=== PATIENT | male | born 1940 | race Caucasian/White ===

== ENCOUNTER 2016-07-11 17:43 | Emergency (ER) | payer MEDICARE ==
[~2016-07-11 17:43] MED LIST: ALDA25TA2 PO; ALPR0.25 PO; AMIO20TA PO; ASPI81TA60 PO; ASPI81TA85 PO; DOXY10CA PO; LASI20TA PO; LASI40TA PO; METO25TA74 PO; METO25TAB PO; MULT1TAB8 PO; PRED10TA FT; PRED20TAB PO; PROA1AER INH; SYMB16INH INH; SYMB80AE INH; TYLE500T78 PO; [UNRECOGNIZED DRUG - CODE] PO
[2016-07-11] MEDS ORDERED: IPRATROPIUM 0.5MG/ALBUTEROL 2.5MG INH SOL UD 3ML (DUONEB)(J7620) As Ordered ONE (18:58)
[2016-07-11 19:14] LABS: BASO % 0.5 % (0.0-1.0); EOS # 0.2 K/mm3 (0.0-0.50); EOS % 2.6 % (0.0-3.0); LARGE UNSTAINED CELL # 0.2 K/mm3 (0.0-0.4); LARGE UNSTAINED CELL % 3.6 % (0.0-4.0); LYMPH % 15.8 % (24.0-44.0); MEAN CORPUSCULAR HGB CONC 33.2 g/dl (32.0-36.5); MEAN CORPUSCULAR VOLUME 96.4 fl (80.0-96.0); MONO # 0.4 K/mm3 (0.0-0.8); MONO % 6.2 % (0.0-5.0); NEUTROPHILS # 4.3 K/mm3 (1.8-7.7); NEUTROPHILS % 71.3 % (36.0-66.0); PLATELET COUNT, AUTOMATED 277 k/mm3 (150-450); RED CELL DISTRIBUTION WIDTH 13.6 % (11.5-14.5)
--- NOTE | 2016-07-11 19:22 | REP ---
Clinical: Shortness of breath. Comparison: 06/12/2016. Findings: Stable cardiomegaly. Diffuse chronic interstitial changes are appreciated. Subtle superimposed interstitial edema cannot be excluded and requires correlation. No focal consolidation, obvious effusion, or pneumothorax. Skeletal structures stable. Impression: Chronic interstitial changes. Cannot exclude superimposed interstitial edema. Signed by Walter Landon MD 07/11/2016 07:13 P
[2016-07-11 19:38] LABS: ANION GAP 10 MEQ/L (8-16); BLOOD UREA NITROGEN 29 MG/DL (7-18); CALCIUM LEVEL 8.9 MG/DL (8.8-10.2); CARBON DIOXIDE LEVEL 27 MEQ/L (21-32); CHLORIDE LEVEL 103 MEQ/L (98-107); CREATININE FOR GFR 1.48 MG/DL (0.70-1.30); GLOMERULAR FILTRATION RATE 49.2 (>42); GLUCOSE, FASTING 110 MG/DL (83-110); POTASSIUM SERUM 4.7 MEQ/L (3.5-5.1); SODIUM LEVEL 140 MEQ/L (136-145)
--- NOTE | 2016-07-11 21:24 | EDDOCDS ---
Nurse's Notes [facility] Name: Arcenio Pace Age: 75 yrs Sex: Male : 1940 Arrival Date: 07/11/2016 Time: 17:43 Bed 12 Private MD: Leonidas Floyd MD Diagnosis: Chronic obstructive pulmonary disease with (acute) exacerbation Presentation: 07/11 17:47 Presenting complaint: Patient states: Increased difficulty breathing for 2-3 days, dwg recent admission to [facility] for COPD/Pneumonia. Adult Sepsis Screening: The patient does not have new or worsening altered mentation. Patient has a respiratory rate of greater than or equal to 22 (1 point). Systolic blood pressure is greater than 100. Patient has a qSOFA score of 1- Negative Sepsis Screen. Suicide/Homicide risk assessment- the patient denies having any suicidal and/or homicidal ideations and does not present with any other emotional, behavioral or mental health complaints. Status: Patient is not a service operator or dependent. Transition of care: patient was not received from another setting of care. 17:47 Acuity: TRACEY Level 3 [facility] 17:47 Method Of Arrival: Wheelchair [facility] Triage Assessment: 17:53 General: Appears in no apparent distress. Pain: Denies pain. dw 21:22 Respiratory: Onset: The symptoms/episode began/occurred No deficits noted. cf2 Historical: - Allergies: PENICILLINS; - Home Meds: 1. Albuterol Nebulizer as needed (Last dose: 07/11/2016 16:00) 2. aspirin 81 mg Oral TbEC 1 tab once daily (Last dose: 07/11/2016 08:00) 3. Lasix 20 mg oral tab once daily (Last dose: 07/11/2016 08:00) 4. metoprolol tartrate 25 mg Oral tab 1 tab once daily (Last dose: 07/11/2016) 5. Symbicort 160-4.5 mcg/actuation inhalation HFAA 2 puffs 2 times per day (Last dose: 07/11/2016 08:00) 6. amiodarone 200 mg Oral tab 1 tab once daily (Last dose: 07/11/2016) - PMHx: Atrial Fib; CHF; COPD; - PSHx: Mitral valve repair 2011; - Social history: Smoking status: Patient states former smoker of tobacco. No barriers to communication noted, The patient speaks fluent Kittitian. - Family history: Not pertinent. - : The pt / caregiver states he / she is not on anticoagulants. Home medication list is obtained from the patient. - Exposure Risk Screening:: None identified. Screenin:30 Screening information is obtained from the patient, family members. Fall risk: At risk cf2 due to age. Assistance ADL's: requires no assistance with activities of daily living. Abuse/DV Screen: The patient / caregiver reports he/she is: not in a situation that causes fear, pain or injury. Nutritional screening: No deficits noted. Advance Directives: Further advance directive information is declined. home support is adequate. Assessment: 18:42 General: Appears comfortable, well developed, well nourished, well groomed, Behavior is kcs cooperative, pleasant. Pain: Location: chest. Pain: Aggravated by coughing. Neurological: Level of Consciousness is awake, alert. Cardiovascular: Rhythm is sinus rhythm. Respiratory: Airway is patent Respiratory effort is labored, Respiratory pattern is regular, symmetrical, Breath sounds are clear bilaterally. Breath sounds are diminished bilaterally. minimal swelling of bilateral lower legs. Derm: Skin is intact, is healthy with good turgor, Skin is dry, Skin is normal. 18:59 Reassessment: Patient has a dry cough - given a glass of water.. kcs 20:50 General: Ambulated without difficulty. Denies SOB. O2 sat 89-91% while ambulating and cf2 pulse remained in the 70's. MD made aware . Vital Signs: 17:44 BP 109 / 66; Pulse 84; Resp 22 S; Temp 97.1(T); Pulse Ox 94% on R/A; Weight 69.4 kg dd6 (R); Height 5 ft. 10 in. (177.80 cm) (R); 19:30 Pulse 78 MON; Pulse Ox 94% ; cf2 19:30 BP 110 / 57 (auto/); cf2 19:45 Pulse 76 MON; Pulse Ox 93% ; cf2 19:45 BP 119 / 58 (auto/); cf2 20:00 BP 100 / 58 (auto/); cf2 20:00 Pulse 74 MON; Pulse Ox 94% ; cf2 20:15 Pulse 72 MON; Pulse Ox 93% ; cf2 20:15 BP 106 / 59 (auto/); cf2 20:30 Pulse 70 MON; Pulse Ox 93% ; cf2 20:30 BP 108 / 60 (auto/); cf2 20:45 Pulse 74 MON; Pulse Ox 93% ; cf2 20:45 BP 121 / 59 (auto/); cf2 21:00 Pulse 80 MON; Pulse Ox 92% ; cf2 21:00 BP 126 / 60 (auto/); cf2 21:04 Pulse 74 MON; Pulse Ox 92% ; cf2 21:09 Pulse 74 MON; Pulse Ox 90% ; cf2 21:11 Pulse 78 MON; Pulse Ox 90% ; cf2 17:44 Body Mass Index 21.95 (69.40 kg, 177.80 cm) dd6 Vitals: 17:44 Log In Time: July 11, 2016 at 17:42. RN notified that patient meets Red Flag dd6 criteria. ED Course: 17:44 Patient visited by Jose Fields PCA. dd6 17:44 Leonidas Floyd is Private Physician. dd6 17:44 Patient moved to Waiting dd6 17:49 Triage Initiated dwg 17:50 Patient moved to Pre RCE dd6 17:59 Patient moved to 12 dwg 18:00 Biju Okeefe MD is Attending Physician. br1 18:15 Inserted saline lock: 20 gauge in right antecubital area The patient tolerated the kcs procedure well. 18:19 Patient visited by Arcenio Burch PCA. jrd 18:19 EKG done. (by ED staff). Reviewed by Biju Okeefe MD. jrd 18:36 Basic Metabolic Profile Sent. kcs 18:36 CBC with Diff Sent. kcs 18:36 Cardiac Injury Profile Sent. kcs 18:36 Troponin Sent. kcs 18:37 Patient visited by Biju Okeefe MD. br1 18:54 -Influenza A&B Rapid Antigen - Nose Sent. kcs 19:05 Nohelia Osorio,RN is Primary Nurse. cf2 19:05 Patient visited by Nohelia Osorio,TYREE. cf2 19:06 Report given to TYREE Pozo. kcs 19:08 The patient / caregiver is instructed regarding the plan of care and ED course. kcs 19:24 [facility] Payment Agreement was scanned into [employer] and attached to record. jpb 19:24 Chest, 1 View Returned. EDMS 19:30 Patient has correct armband on for positive identification. Placed in gown. Bed in low cf2 position. Call light in reach. Side rails up X 1. Side rails up X2. ekg monitor on. Pulse ox on. NIBP on. Property :Personal belongings accompany Pt. Door closed. Noise minimized. Visitors limited. Lights dimmed. Moved to private room. PO fluids given. Verbal reassurance given. Warm blanket given. Pillow given. Head of bed elevated. 19:30 Discontinued lock. No procedures done that require assistance. cf2 19:56 Patient visited by Nohelia Osorio,TYREE. cf2 20:30 Patient visited by Nohelia Osorio,TYREE. cf2 20:43 Patient visited by Biju Okeefe MD. br1 20:46 Leonidas Floyd is Referral Physician. br1 21:19 Patient visited by Nohelia Osorio RN. cf2 Administered Medications: 19:01 Drug: Albuterol-Ipratropium 3 ml [ipratropium-albuterol 0.5 mg-3 mg(2.5 mg base)/3 mL rs5 nebulization soln (3 mL)] Route: Inhalation; RT: 19:01 Initial Med Neb Given as ordered Patient was instructed and evaluated on procedure rs5 Patient tolerated procedure well without adverse effect. Respiratory: Respiratory effort is even, unlabored, Respiratory pattern is regular symmetrical, Reports cough that is. Order Results: Lab Order: Basic Metabolic Profile; SPEC'M 07/11/16 19:04 Test: GLUCOSE, FASTING; Value: 110; Range: 83-110; Units: MG/DL; Status: F Test: BLOOD UREA NITROGEN; Value: 29; Range: 7-18; Abnormal: Above high normal; Units: MG/DL; Status: F Test: CREATININE FOR GFR; Value: 1.48; Range: 0.70-1.30; Abnormal: Above high normal; Units: MG/DL; Status: F Test: GLOMERULAR FILTRATION RATE; Value: 49.2; Range: >42; Status: F Test: SODIUM LEVEL; Value: 140; Range: 136-145; Units: MEQ/L; Status: F Test: POTASSIUM SERUM; Value: 4.7; Range: 3.5-5.1; Units: MEQ/L; Status: F Test: CHLORIDE LEVEL; Value: 103; Range: 98-107; Units: MEQ/L; Status: F Test: CARBON DIOXIDE LEVEL; Value: 27; Range: 21-32; Units: MEQ/L; Status: F Test: ANION GAP; Value: 10; Range: 8-16; Units: MEQ/L; Status: F Test: CALCIUM LEVEL; Value: 8.9; Range: 8.8-10.2; Units: MG/DL; Status: F Test Note: ; Units are mL/min/1.73 m2 Chronic Kidney Disease Staging per NKF: Stage I & II GFR >=60 Normal to Mildly Decreased Stage III GFR 30-59 Moderately Decreased Stage IV GFR 15-29 Severely Decreased Stage V GFR <15 Very Little GFR Left ESRD GFR <15 on INSTITUTION LIBRARIAN Lab Order: CBC with Diff; SPEC'M 07/11/16 18:34 Test: WHITE BLOOD COUNT; Value: 6.0; Range: 4.0-10.0; Units: K/mm3; Status: F Test: RED BLOOD COUNT; Value: 4.23; Range: 4.30-6.10; Abnormal: Below low normal; Units: M/mm3; Status: F Test: HEMOGLOBIN; Value: 13.5; Range: 14.0-18.0; Abnormal: Below low normal; Units: g/dl; Status: F Test: HEMATOCRIT; Value: 40.8; Range: 42.0-52.0; Abnormal: Below low normal; Units: %; Status: F Test: MEAN CORPUSCULAR VOLUME; Value: 96.4; Range: 80.0-96.0; Abnormal: Above high normal; Units: fl; Status: F Test: MEAN CORPUSCULAR HEMOGLOBIN; Value: 32.0; Range: 27.0-33.0; Units: pg; Status: F Test: MEAN CORPUSCULAR HGB CONC; Value: 33.2; Range: 32.0-36.5; Units: g/dl; Status: F Test: RED CELL DISTRIBUTION WIDTH; Value: 13.6; Range: 11.5-14.5; Units: %; Status: F Test: PLATELET COUNT, AUTOMATED; Value: 277; Range: 150-450; Units: k/mm3; Status: F Test: NEUTROPHILS %; Value: 71.3; Range: 36.0-66.0; Abnormal: Above high normal; Units: %; Status: F Test: LYMPH %; Value: 15.8; Range: 24.0-44.0; Abnormal: Below low normal; Units: %; Status: F Test: MONO %; Value: 6.2; Range: 0.0-5.0; Abnormal: Above high normal; Units: %; Status: F Test: EOS %; Value: 2.6; Range: 0.0-3.0; Units: %; Status: F Test: BASO %; Value: 0.5; Range: 0.0-1.0; Units: %; Status: F Test: LARGE UNSTAINED CELL %; Value: 3.6; Range: 0.0-4.0; Units: %; Status: F Test: NEUTROPHILS #; Value: 4.3; Range: 1.8-7.7; Units: K/mm3; Status: F Test: LYMPH #; Value: 1.0; Range: 1.5-4.5; Abnormal: Below low normal; Units: K/mm3; Status: F Test: MONO #; Value: 0.4; Range: 0.0-0.8; Units: K/mm3; Status: F Test: EOS #; Value: 0.2; Range: 0.0-0.50; Units: K/mm3; Status: F Test: BASO #; Value: 0.0; Range: 0.0-0.2; Units: K/mm3; Status: F Test: LARGE UNSTAINED CELL #; Value: 0.2; Range: 0.0-0.4; Units: K/mm3; Status: F Lab Order: Cardiac Injury Profile; SPEC'M 07/11/16 19:04 Test: CPK CREATINE PHOSPHOKINASE; Value: 65; Range: 39-308; Units: U/L; Status: F Test: CK-MB VALUE MASS; Value: 2.7; Range: 0.0-3.6; Units: NG/ML; Status: F Test: MB/CK RELATIVE INDEX; Value: 4.15; Range: < OR =4; Abnormal: Above high normal; Status: F Test Note: ; DIAGNOSIS CRITERIA MMB ng/ml Relative Index (RI) NON-AMI < or = 5 N/A REGAN [place]ONE > 5 < or = 4 AMI > 5 > 4 Lab Order: Troponin; SPEC'M 07/11/16 19:04 Test: TROPONIN I; Value: < 0.02; Range: < 0.10; Units: NG/ML; Status: F Test Note: ; Troponin I Reference Interval for Siemens Traction LOCI: 99th Percentile= 0.00-0.045 ng/ml Risk Stratification: <= 0.10 ng/ml Decreased Risk for Adverse Clinical Events. 0.10-1.50 ng/ml Increased Risk for Adverse Clinical Events. Evaluation of additional criterion and/or repeat testing in 2-6 hours is suggested to rule out myocardial damage. >= 1.50 ng/ml Indicative of Myocardial Injury. Lab Order: BNP; SPEC'M 07/11/16 18:34 Test: BRAIN NATRIURETIC PEPTIDE; Value: 177; Range: <100; Abnormal: Above high normal; Units: PG/ML; Status: F Lab Order: -Influenza A&B Rapid Antigen - Nose; SPEC'M 07/11/16 18:52 Test: INFLUENZA A RAPID SCR by ICA; Value: INFLUENZA A RESULTS NEGATIVE; Status: F Test: INFLUENZA A RAPID SCR by ICA; Value: Comments:; Status: F Test: INFLUENZA B RAPID SCR by ICA; Value: INFLUENZA B RESULTS NEGATIVE; Status: F Test Note: ; The Influenza test is a direct rapid immunoassay for the qualitative detection of Influenza viral antigen. Cell culture (Viral Culture) testing should be considered to confirm NEGATIVE results and to assist in detecting other viruses that can provide similar clinical symptoms. Please contact the lab within 24 hours ([phone]) if confirmatory testing is desired. Radiology Order: Chest, 1 View Test: Chest, 1 View REASON FOR EXAMINATION: Shortness of Breath; Clinical: Shortness of breath.; ; Comparison: 06/12/2016.; ; Findings:; Stable cardiomegaly.; Diffuse chronic interstitial changes are appreciated. Subtle superimposed; interstitial edema cannot be excluded and requires correlation. No focal; consolidation, obvious effusion, or pneumothorax. Skeletal structures stable.; ; Impression:; Chronic interstitial changes. Cannot exclude superimposed interstitial edema.; ; ; Signed by; Walter Landon MD 07/11/2016 07:13 P; Outcome: 19:30 Discharge Assessment: Patient awake, alert and oriented x 3. No cognitive and/or cf2 functional deficits noted. Patient verbalized understanding of disposition instructions. Patient awake and alert. Oriented to person, place and time. Patient verbalized understanding of disposition instructions. Patient has no functional deficits. patient administered narcotics - no. The following High Risk Discharge criteria are identified: None. Discharged to home. Condition: stable. Discharge instructions given to patient, family, significant other, Instructed on discharge instructions, follow up and referral plans. Demonstrated understanding of instructions. No special radiology studies were completed. 20:47 Discharge ordered by Provider. br1 21:23 Patient left the ED. cf2 Signatures: Dispatcher [employer] EDMS Dalila Diehl, RN RN Severino May, Biju Pozo RN, MD MD br1 Jose Fields, DRYWALL BOARDHANGER DRYWALL BOARDHANGER dd6 Frederic Pickard,RT RT rs5 Joseph Farley Joseph, DRYWALL BOARDHANGER DRYWALL BOARDHANGER jrd Nohelia Osorio RN RN cf2 MTDD
--- NOTE | 2016-07-11 21:24 | EDDOCDS ---
Physician Documentation [facility] Name: Arcenio Pace Age: 75 yrs Sex: Male : 1940 Arrival Date: 07/11/2016 Time: 17:43 Bed 12 Private MD: Leonidas Floyd MD Disposition: 07/11/16 20:47 Discharged to Home/Self Care. Impression: Chronic obstructive pulmonary disease with (acute) exacerbation. - Condition is Stable. - Discharge Instructions: Chronic Obstructive Pulmonary Disease. - Medication Reconciliation, Local Pharmacy Hours form. - Follow up: Leonidas Floyd; When: 2 - 3 days; Reason: Recheck today's complaints. - Problem is an acute exacerbation. - Symptoms have improved. - Notes: You were seen in the ED for shortness of breath. Bloodwork and EKG of the heart showed no acute findings. Chest Xray could not exclude a small amount of fluid but showed no other acute findings. You were treated and improved with breathing treatment in the ED.
As you are feeling better you may return home. Continue your nebulizers and prednisone as Dr. Floyd has directed you and call Dr. Floyd to arrange to be seen for recheck.
Return to the ED for any return of trouble breathing, chest pain, fever, loss of consciousness or any other concerns. Historical: - Allergies: PENICILLINS; - Home Meds: 1. Albuterol Nebulizer as needed (Last dose: 07/11/2016 16:00) 2. aspirin 81 mg Oral TbEC 1 tab once daily (Last dose: 07/11/2016 08:00) 3. Lasix 20 mg oral tab once daily (Last dose: 07/11/2016 08:00) 4. metoprolol tartrate 25 mg Oral tab 1 tab once daily (Last dose: 07/11/2016) 5. Symbicort 160-4.5 mcg/actuation inhalation HFAA 2 puffs 2 times per day (Last dose: 07/11/2016 08:00) 6. amiodarone 200 mg Oral tab 1 tab once daily (Last dose: 07/11/2016) - PMHx: Atrial Fib; CHF; COPD; - PSHx: Mitral valve repair 2011; - Social history: Smoking status: Patient states former smoker of tobacco. No barriers to communication noted, The patient speaks fluent [place]ar[place]. - Family history: Not pertinent. - : The pt / caregiver states he / she is not on anticoagulants. Home medication list is obtained from the patient. - Exposure Risk Screening:: None identified. Vital Signs: 07/11 17:44 BP 109 / 66; Pulse 84; Resp 22 S; Temp 97.1(T); Pulse Ox 94% on R/A; Weight 69.4 kg / dd6 153 lbs (R); Height 5 ft. 10 in. (177.80 cm) (R); 19:30 Pulse 78 MON; Pulse Ox 94% ; cf2 19:30 BP 110 / 57 (auto/); cf2 19:45 Pulse 76 MON; Pulse Ox 93% ; cf2 19:45 BP 119 / 58 (auto/); cf2 20:00 BP 100 / 58 (auto/); cf2 20:00 Pulse 74 MON; Pulse Ox 94% ; cf2 20:15 Pulse 72 MON; Pulse Ox 93% ; cf2 20:15 BP 106 / 59 (auto/); cf2 20:30 Pulse 70 MON; Pulse Ox 93% ; cf2 20:30 BP 108 / 60 (auto/); cf2 20:45 Pulse 74 MON; Pulse Ox 93% ; cf2 20:45 BP 121 / 59 (auto/); cf2 21:00 Pulse 80 MON; Pulse Ox 92% ; cf2 21:00 BP 126 / 60 (auto/); cf2 21:04 Pulse 74 MON; Pulse Ox 92% ; cf2 21:09 Pulse 74 MON; Pulse Ox 90% ; cf2 21:11 Pulse 78 MON; Pulse Ox 90% ; cf2 17:44 Body Mass Index 21.95 (69.40 kg, 177.80 cm) dd6 MDM: 18:04 Poultry Processor/Pulse Ox/q 30 min VS ordered. br1 18:04 IV Saline Lock ordered. br1 18:04 Rhythm Strip to chart ordered. br1 18:04 Undress patient appropriately for examination ordered. br1 18:05 Basic Metabolic Profile Ordered. EDMS 18:05 CBC with Diff Ordered. EDMS 18:05 Cardiac Injury Profile Ordered. EDMS 18:05 Troponin Ordered. EDMS 18:05 Chest, 1 View Ordered. EDMS 18:05 ECG WITH READING ER PHYS+CARDIAG ordered. EDMS 18:38 Albuterol-Ipratropium 3 ml Inhalation once ordered. br1 18:38 Call Respiratory ordered. br1 18:38 BNP Ordered. EDMS 18:38 -Influenza A&B Rapid Antigen - Nose Ordered. EDMS 18:43 Call Respiratory complete. jlf 19:18 Financial registration complete. jpb 19:24 [facility] Payment Agreement was scanned into [employer] and attached to record. jpb 19:46 CBC with Diff Reviewed. br1 19:46 BNP Reviewed. br1 19:46 -Influenza A&B Rapid Antigen - Nose Reviewed. br1 19:46 Chest, 1 View Reviewed. br1 19:49 Basic Metabolic Profile Reviewed. br1 19:49 Cardiac Injury Profile Reviewed. br1 19:49 Troponin Reviewed. br1 19:50 Ambulate Patient wt Pulse Oximetry ordered. br1 Administered Medications: 19:01 Drug: Albuterol-Ipratropium 3 ml [ipratropium-albuterol 0.5 mg-3 mg(2.5 mg base)/3 mL rs5 nebulization soln (3 mL)] Route: Inhalation; Signatures: Dispatcher [employer] EDMS Dalila Diehl, RN RN Severino May RN Biju Pozo MD MD br1 Joseph Farley Jordain, MANAGER ENVIRONMENTAL AFFAIRS MANAGER ENVIRONMENTAL AFFAIRS jlf Nohelia Osorio,RN RN cf2 Frederic Pickard RT rs5 The chart was reviewed and I authenticate all verbal orders and agree with the evaluation and treatment provided.Attachments: 19:24 [facility] Payment Agreement jp MTDD
--- NOTE | 2016-07-12 18:01 | ECGEPIP ---
Stationary ECG Study [facility] - ED Test Date: 2016-07-11 Pat Name: EMMA CALLAHAN Department: Room: - Gender: M Academic Affairs Manager: quinn : 1940 Requested By: VISHAL Seaman Order Number: [id number] Reading MD: Teresita Rodriguez Measurements Intervals [place] Rate: 77 P: 227 NC: 184 QRS: 24 QRSD: 122 T: 65 QT: 397 QTc: 450 Interpretive Statements SINUS RHYTHM RIGHT BUNDLE BRANCH BLOCK Electronically Signed On 07-12-2016 18:00:41 EST by Teresita Rodriguez
--- NOTE | 2016-07-13 22:24 | EDDOCDS ---
Physician Documentation [facility] Name: Arcenio Pace Age: 75 yrs Sex: Male : 1940 Arrival Date: 07/11/2016 Time: 17:43 Bed 12 Private MD: Leonidas Floyd MD Disposition: 07/11/16 20:47 Discharged to Home/Self Care. Impression: Chronic obstructive pulmonary disease with (acute) exacerbation. - Condition is Stable. - Discharge Instructions: Chronic Obstructive Pulmonary Disease. - Medication Reconciliation, Local Pharmacy Hours form. - Follow up: Leonidas Floyd; When: 2 - 3 days; Reason: Recheck today's complaints. - Problem is an acute exacerbation. - Symptoms have improved. - Notes: You were seen in the ED for shortness of breath. Bloodwork and EKG of the heart showed no acute findings. Chest Xray could not exclude a small amount of fluid but showed no other acute findings. You were treated and improved with breathing treatment in the ED.
As you are feeling better you may return home. Continue your nebulizers and prednisone as Dr. Floyd has directed you and call Dr. Floyd to arrange to be seen for recheck.
Return to the ED for any return of trouble breathing, chest pain, fever, loss of consciousness or any other concerns. Historical: - Allergies: PENICILLINS; - Home Meds: 1. Albuterol Nebulizer as needed (Last dose: 07/11/2016 16:00) 2. aspirin 81 mg Oral TbEC 1 tab once daily (Last dose: 07/11/2016 08:00) 3. Lasix 20 mg oral tab once daily (Last dose: 07/11/2016 08:00) 4. metoprolol tartrate 25 mg Oral tab 1 tab once daily (Last dose: 07/11/2016) 5. Symbicort 160-4.5 mcg/actuation inhalation HFAA 2 puffs 2 times per day (Last dose: 07/11/2016 08:00) 6. amiodarone 200 mg Oral tab 1 tab once daily (Last dose: 07/11/2016) - PMHx: Atrial Fib; CHF; COPD; - PSHx: Mitral valve repair 2011; - Social history: Smoking status: Patient states former smoker of tobacco. No barriers to communication noted, The patient speaks fluent [place] Islander. - Family history: Not pertinent. - : The pt / caregiver states he / she is not on anticoagulants. Home medication list is obtained from the patient. - Exposure Risk Screening:: None identified. Vital Signs: 07/11 17:44 BP 109 / 66; Pulse 84; Resp 22 S; Temp 97.1(T); Pulse Ox 94% on R/A; Weight 69.4 kg / dd6 153 lbs (R); Height 5 ft. 10 in. (177.80 cm) (R); 19:30 Pulse 78 MON; Pulse Ox 94% ; cf2 19:30 BP 110 / 57 (auto/); cf2 19:45 Pulse 76 MON; Pulse Ox 93% ; cf2 19:45 BP 119 / 58 (auto/); cf2 20:00 BP 100 / 58 (auto/); cf2 20:00 Pulse 74 MON; Pulse Ox 94% ; cf2 20:15 Pulse 72 MON; Pulse Ox 93% ; cf2 20:15 BP 106 / 59 (auto/); cf2 20:30 Pulse 70 MON; Pulse Ox 93% ; cf2 20:30 BP 108 / 60 (auto/); cf2 20:45 Pulse 74 MON; Pulse Ox 93% ; cf2 20:45 BP 121 / 59 (auto/); cf2 21:00 Pulse 80 MON; Pulse Ox 92% ; cf2 21:00 BP 126 / 60 (auto/); cf2 21:04 Pulse 74 MON; Pulse Ox 92% ; cf2 21:09 Pulse 74 MON; Pulse Ox 90% ; cf2 21:11 Pulse 78 MON; Pulse Ox 90% ; cf2 17:44 Body Mass Index 21.95 (69.40 kg, 177.80 cm) dd6 MDM: 18:04 Ceramic Artist/Pulse Ox/q 30 min VS ordered. br1 18:04 IV Saline Lock ordered. br1 18:04 Rhythm Strip to chart ordered. br1 18:04 Undress patient appropriately for examination ordered. br1 18:05 Basic Metabolic Profile Ordered. EDMS 18:05 CBC with Diff Ordered. EDMS 18:05 Cardiac Injury Profile Ordered. EDMS 18:05 Troponin Ordered. EDMS 18:05 Chest, 1 View Ordered. EDMS 18:05 ECG WITH READING ER PHYS+CARDIAG ordered. EDMS 18:38 Albuterol-Ipratropium 3 ml Inhalation once ordered. br1 18:38 Call Respiratory ordered. br1 18:38 BNP Ordered. EDMS 18:38 -Influenza A&B Rapid Antigen - Nose Ordered. EDMS 18:43 Call Respiratory complete. jlf 19:18 Financial registration complete. jpb 19:24 [facility] Payment Agreement was scanned into [employer] and attached to record. jpb 19:46 CBC with Diff Reviewed. br1 19:46 BNP Reviewed. br1 19:46 -Influenza A&B Rapid Antigen - Nose Reviewed. br1 19:46 Chest, 1 View Reviewed. br1 19:49 Basic Metabolic Profile Reviewed. br1 19:49 Cardiac Injury Profile Reviewed. br1 19:49 Troponin Reviewed. br1 19:50 Ambulate Patient [facility] Pulse Oximetry ordered. br1 07/12 10:20 T-Sheet-- Draft Copy was scanned into [employer] and attached to record. gb 10:20 ECG/EKG was scanned into [employer] and attached to record. gb 07/13 12:36 EKG-ADULT Reviewed. ml Administered Medications: 07/11 19:01 Drug: Albuterol-Ipratropium 3 ml [ipratropium-albuterol 0.5 mg-3 mg(2.5 mg base)/3 mL rs5 nebulization soln (3 mL)] Route: Inhalation; Signatures: Dispatcher [employer] EDMina Acosta MD MD ml Sleeman, Kacey, RN RN kcs Greene, Daniel, RN RN dwCorinne Mendoza, Reg Reg Biju Okeefe MD MD brJoseph Manrique Jordain, EBENEZER CRUISE CONSULTANT jl Nohelia Osorio,TYREE RN cf2 Frederic Pickard RT rs5 The chart was reviewed and I authenticate all verbal orders and agree with the evaluation and treatment provided.Attachments: 19:24 [facility] Payment Agreement [facility] 07/12 10:20 T-Sheet-- Draft Copy gb 10:20 ECG/EKG gb Chart Complete MTDD
--- NOTE | 2016-07-13 22:24 | EDDOCDS ---
Nurse's Notes Name: Arcenio Callahan Age: 75 yrs Sex: Male : 1940 Arrival Date: 07/11/2016 Time: 17:43 Bed 12 Private MD: Leonidas Floyd MD Diagnosis: Chronic obstructive pulmonary disease with (acute) exacerbation Presentation: 07/11 17:47 Presenting complaint: Patient states: Increased difficulty breathing for 2-3 days, dwg recent admission to [facility] for COPD/Pneumonia. Adult Sepsis Screening: The patient does not have new or worsening altered mentation. Patient has a respiratory rate of greater than or equal to 22 (1 point). Systolic blood pressure is greater than 100. Patient has a qSOFA score of 1- Negative Sepsis Screen. Suicide/Homicide risk assessment- the patient denies having any suicidal and/or homicidal ideations and does not present with any other emotional, behavioral or mental health complaints. Status: Patient is not a mobile home servicer or dependent. Transition of care: patient was not received from another setting of care. 17:47 Acuity: TRACEY Level 3 [facility] 17:47 Method Of Arrival: Wheelchair [facility] Triage Assessment: 17:53 General: Appears in no apparent distress. Pain: Denies pain. dw 21:22 Respiratory: Onset: The symptoms/episode began/occurred No deficits noted. cf2 Historical: - Allergies: PENICILLINS; - Home Meds: 1. Albuterol Nebulizer as needed (Last dose: 07/11/2016 16:00) 2. aspirin 81 mg Oral TbEC 1 tab once daily (Last dose: 07/11/2016 08:00) 3. Lasix 20 mg oral tab once daily (Last dose: 07/11/2016 08:00) 4. metoprolol tartrate 25 mg Oral tab 1 tab once daily (Last dose: 07/11/2016) 5. Symbicort 160-4.5 mcg/actuation inhalation HFAA 2 puffs 2 times per day (Last dose: 07/11/2016 08:00) 6. amiodarone 200 mg Oral tab 1 tab once daily (Last dose: 07/11/2016) - PMHx: Atrial Fib; CHF; COPD; - PSHx: Mitral valve repair 2011; - Social history: Smoking status: Patient states former smoker of tobacco. No barriers to communication noted, The patient speaks fluent Welsh. - Family history: Not pertinent. - : The pt / caregiver states he / she is not on anticoagulants. Home medication list is obtained from the patient. - Exposure Risk Screening:: None identified. Screenin:30 Screening information is obtained from the patient, family members. Fall risk: At risk cf2 due to age. Assistance ADL's: requires no assistance with activities of daily living. Abuse/DV Screen: The patient / caregiver reports he/she is: not in a situation that causes fear, pain or injury. Nutritional screening: No deficits noted. Advance Directives: Further advance directive information is declined. home support is adequate. Assessment: 18:42 General: Appears comfortable, well developed, well nourished, well groomed, Behavior is kcs cooperative, pleasant. Pain: Location: chest. Pain: Aggravated by coughing. Neurological: Level of Consciousness is awake, alert. Cardiovascular: Rhythm is sinus rhythm. Respiratory: Airway is patent Respiratory effort is labored, Respiratory pattern is regular, symmetrical, Breath sounds are clear bilaterally. Breath sounds are diminished bilaterally. minimal swelling of bilateral lower legs. Derm: Skin is intact, is healthy with good turgor, Skin is dry, Skin is normal. 18:59 Reassessment: Patient has a dry cough - given a glass of water.. kcs 20:50 General: Ambulated without difficulty. Denies SOB. O2 sat 89-91% while ambulating and cf2 pulse remained in the 70's. MD made aware . Vital Signs: 17:44 BP 109 / 66; Pulse 84; Resp 22 S; Temp 97.1(T); Pulse Ox 94% on R/A; Weight 69.4 kg dd6 (R); Height 5 ft. 10 in. (177.80 cm) (R); 19:30 Pulse 78 MON; Pulse Ox 94% ; cf2 19:30 BP 110 / 57 (auto/); cf2 19:45 Pulse 76 MON; Pulse Ox 93% ; cf2 19:45 BP 119 / 58 (auto/); cf2 20:00 BP 100 / 58 (auto/); cf2 20:00 Pulse 74 MON; Pulse Ox 94% ; cf2 20:15 Pulse 72 MON; Pulse Ox 93% ; cf2 20:15 BP 106 / 59 (auto/); cf2 20:30 Pulse 70 MON; Pulse Ox 93% ; cf2 20:30 BP 108 / 60 (auto/); cf2 20:45 Pulse 74 MON; Pulse Ox 93% ; cf2 20:45 BP 121 / 59 (auto/); cf2 21:00 Pulse 80 MON; Pulse Ox 92% ; cf2 21:00 BP 126 / 60 (auto/); cf2 21:04 Pulse 74 MON; Pulse Ox 92% ; cf2 21:09 Pulse 74 MON; Pulse Ox 90% ; cf2 21:11 Pulse 78 MON; Pulse Ox 90% ; cf2 17:44 Body Mass Index 21.95 (69.40 kg, 177.80 cm) dd6 Vitals: 17:44 Log In Time: July 11, 2016 at 17:42. RN notified that patient meets Red Flag dd6 criteria. ED Course: 17:44 Patient visited by Jose Fields PCA. dd6 17:44 Leonidas Floyd is Private Physician. dd6 17:44 Patient moved to Waiting dd6 17:49 Triage Initiated dwg 17:50 Patient moved to Pre RCE dd6 17:59 Patient moved to 12 dwg 18:00 Vishal Okeefe MD is Attending Physician. br1 18:15 Inserted saline lock: 20 gauge in right antecubital area The patient tolerated the kcs procedure well. 18:19 Patient visited by Arcenio Burch PCA. jrd 18:19 EKG done. (by ED staff). Reviewed by Vishal Okeefe MD. jrd 18:36 Basic Metabolic Profile Sent. kcs 18:36 CBC with Diff Sent. kcs 18:36 Cardiac Injury Profile Sent. kcs 18:36 Troponin Sent. kcs 18:37 Patient visited by Vishal Okeefe MD. br1 18:54 -Influenza A&B Rapid Antigen - Nose Sent. kcs 19:05 Nohelia Osorio,RN is Primary Nurse. cf2 19:05 Patient visited by Nohelia Osorio,TYREE. cf2 19:06 Report given to TYREE Pozo. kcs 19:08 The patient / caregiver is instructed regarding the plan of care and ED course. kcs 19:24 [facility] [place] was scanned into [employer] and attached to record. jpb 19:24 Chest, 1 View Returned. EDMS 19:30 Patient has correct armband on for positive identification. Placed in gown. Bed in low cf2 position. Call light in reach. Side rails up X 1. Side rails up X2. contract negotiation manager on. Pulse ox on. NIBP on. Property :Personal belongings accompany Pt. Door closed. Noise minimized. Visitors limited. Lights dimmed. Moved to private room. PO fluids given. Verbal reassurance given. Warm blanket given. Pillow given. Head of bed elevated. 19:30 Discontinued lock. No procedures done that require assistance. cf2 19:56 Patient visited by Nohelia Osorio,TYREE. cf2 20:30 Patient visited by Nohelia Osorio,TYREE. cf2 20:43 Patient visited by Vishal Okeefe MD. br1 20:46 Leonidas Floyd is Referral Physician. br1 21:19 Patient visited by Nohelia Osorio,TYREE. cf2 07/12 10:20 T-Sheet-- Draft Copy was scanned into [employer] and attached to record. gb 10:20 ECG/EKG was scanned into [employer] and attached to record. gb 18:09 EKG-ADULT Returned. EDMS Administered Medications: 07/11 19:01 Drug: Albuterol-Ipratropium 3 ml [ipratropium-albuterol 0.5 mg-3 mg(2.5 mg base)/3 mL rs5 nebulization soln (3 mL)] Route: Inhalation; RT: 19:01 Initial Med Neb Given as ordered Patient was instructed and evaluated on procedure rs5 Patient tolerated procedure well without adverse effect. Respiratory: Respiratory effort is even, unlabored, Respiratory pattern is regular symmetrical, Reports cough that is. Order Results: Lab Order: Basic Metabolic Profile; SPEC'M 07/11/16 19:04 Test: GLUCOSE, FASTING; Value: 110; Range: 83-110; Units: MG/DL; Status: F Test: BLOOD UREA NITROGEN; Value: 29; Range: 7-18; Abnormal: Above high normal; Units: MG/DL; Status: F Test: CREATININE FOR GFR; Value: 1.48; Range: 0.70-1.30; Abnormal: Above high normal; Units: MG/DL; Status: F Test: GLOMERULAR FILTRATION RATE; Value: 49.2; Range: >42; Status: F Test: SODIUM LEVEL; Value: 140; Range: 136-145; Units: MEQ/L; Status: F Test: POTASSIUM SERUM; Value: 4.7; Range: 3.5-5.1; Units: MEQ/L; Status: F Test: CHLORIDE LEVEL; Value: 103; Range: 98-107; Units: MEQ/L; Status: F Test: CARBON DIOXIDE LEVEL; Value: 27; Range: 21-32; Units: MEQ/L; Status: F Test: ANION GAP; Value: 10; Range: 8-16; Units: MEQ/L; Status: F Test: CALCIUM LEVEL; Value: 8.9; Range: 8.8-10.2; Units: MG/DL; Status: F Test Note: ; Units are mL/min/1.73 m2 Chronic Kidney Disease Staging per NKF: Stage I & II GFR >=60 Normal to Mildly Decreased Stage III GFR 30-59 Moderately Decreased Stage IV GFR 15-29 Severely Decreased Stage V GFR <15 Very Little GFR Left ESRD GFR <15 on SMALL BUSINESS CONSULTANT Lab Order: CBC with Diff; SPEC'M 07/11/16 18:34 Test: WHITE BLOOD COUNT; Value: 6.0; Range: 4.0-10.0; Units: K/mm3; Status: F Test: RED BLOOD COUNT; Value: 4.23; Range: 4.30-6.10; Abnormal: Below low normal; Units: M/mm3; Status: F Test: HEMOGLOBIN; Value: 13.5; Range: 14.0-18.0; Abnormal: Below low normal; Units: g/dl; Status: F Test: HEMATOCRIT; Value: 40.8; Range: 42.0-52.0; Abnormal: Below low normal; Units: %; Status: F Test: MEAN CORPUSCULAR VOLUME; Value: 96.4; Range: 80.0-96.0; Abnormal: Above high normal; Units: fl; Status: F Test: MEAN CORPUSCULAR HEMOGLOBIN; Value: 32.0; Range: 27.0-33.0; Units: pg; Status: F Test: MEAN CORPUSCULAR HGB CONC; Value: 33.2; Range: 32.0-36.5; Units: g/dl; Status: F Test: RED CELL DISTRIBUTION WIDTH; Value: 13.6; Range: 11.5-14.5; Units: %; Status: F Test: PLATELET COUNT, AUTOMATED; Value: 277; Range: 150-450; Units: k/mm3; Status: F Test: NEUTROPHILS %; Value: 71.3; Range: 36.0-66.0; Abnormal: Above high normal; Units: %; Status: F Test: LYMPH %; Value: 15.8; Range: 24.0-44.0; Abnormal: Below low normal; Units: %; Status: F Test: MONO %; Value: 6.2; Range: 0.0-5.0; Abnormal: Above high normal; Units: %; Status: F Test: EOS %; Value: 2.6; Range: 0.0-3.0; Units: %; Status: F Test: BASO %; Value: 0.5; Range: 0.0-1.0; Units: %; Status: F Test: LARGE UNSTAINED CELL %; Value: 3.6; Range: 0.0-4.0; Units: %; Status: F Test: NEUTROPHILS #; Value: 4.3; Range: 1.8-7.7; Units: K/mm3; Status: F Test: LYMPH #; Value: 1.0; Range: 1.5-4.5; Abnormal: Below low normal; Units: K/mm3; Status: F Test: MONO #; Value: 0.4; Range: 0.0-0.8; Units: K/mm3; Status: F Test: EOS #; Value: 0.2; Range: 0.0-0.50; Units: K/mm3; Status: F Test: BASO #; Value: 0.0; Range: 0.0-0.2; Units: K/mm3; Status: F Test: LARGE UNSTAINED CELL #; Value: 0.2; Range: 0.0-0.4; Units: K/mm3; Status: F Lab Order: Cardiac Injury Profile; SPEC'M 07/11/16 19:04 Test: CPK CREATINE PHOSPHOKINASE; Value: 65; Range: 39-308; Units: U/L; Status: F Test: CK-MB VALUE MASS; Value: 2.7; Range: 0.0-3.6; Units: NG/ML; Status: F Test: MB/CK RELATIVE INDEX; Value: 4.15; Range: < OR =4; Abnormal: Above high normal; Status: F Test Note: ; DIAGNOSIS CRITERIA MMB ng/ml Relative Index (RI) NON-AMI < or = 5 N/A REGAN ZONE > 5 < or = 4 AMI > 5 > 4 Lab Order: Troponin; SPEC'M 07/11/16 19:04 Test: TROPONIN I; Value: < 0.02; Range: < 0.10; Units: NG/ML; Status: F Test Note: ; Troponin I Reference Interval for [employer] LOCI: 99th Percentile= 0.00-0.045 ng/ml Risk Stratification: <= 0.10 ng/ml Decreased Risk for Adverse Clinical Events. 0.10-1.50 ng/ml Increased Risk for Adverse Clinical Events. Evaluation of additional criterion and/or repeat testing in 2-6 hours is suggested to rule out myocardial damage. >= 1.50 ng/ml Indicative of Myocardial Injury. Lab Order: BNP; SPEC'M 07/11/16 18:34 Test: BRAIN NATRIURETIC PEPTIDE; Value: 177; Range: <100; Abnormal: Above high normal; Units: PG/ML; Status: F Lab Order: -Influenza A&B Rapid Antigen - Nose; SPEC'M 07/11/16 18:52 Test: INFLUENZA A RAPID SCR by ICA; Value: INFLUENZA A RESULTS NEGATIVE; Status: F Test: INFLUENZA A RAPID SCR by ICA; Value: Comments:; Status: F Test: INFLUENZA B RAPID SCR by ICA; Value: INFLUENZA B RESULTS NEGATIVE; Status: F Test Note: ; The Influenza test is a direct rapid immunoassay for the qualitative detection of Influenza viral antigen. Cell culture (Viral Culture) testing should be considered to confirm NEGATIVE results and to assist in detecting other viruses that can provide similar clinical symptoms. Please contact the lab within 24 hours ([phone]) if confirmatory testing is desired. Radiology Order: Chest, 1 View Test: Chest, 1 View REASON FOR EXAMINATION: Shortness of Breath; Clinical: Shortness of breath.; ; Comparison: 06/12/2016.; ; Findings:; Stable cardiomegaly.; Diffuse chronic interstitial changes are appreciated. Subtle superimposed; interstitial edema cannot be excluded and requires correlation. No focal; consolidation, obvious effusion, or pneumothorax. Skeletal structures stable.; ; Impression:; Chronic interstitial changes. Cannot exclude superimposed interstitial edema.; ; ; Signed by; Walter Landon MD 07/11/2016 07:13 P; Radiology Order: EKG-ADULT Test: EKG-ADULT REASON FOR EXAMINATION: Shortness of Breath; Stationary ECG Study; [facility] - ED; ; Test Date: 2016-07-11; Pat Name: ARCENIO CALLAHAN Department:; Room: -; Gender: M Ribbon Hand: quinn; : 1940 Requested By: VISHAL Seaman; Order Number: [id number] Reading MD: Teresita Rodriguez; Measurements; Intervals [place]; Rate: 77 P: 227; NM: 184 QRS: 24; QRSD: 122 T: 65; QT: 397; QTc: 450; Interpretive Statements; SINUS RHYTHM; RIGHT BUNDLE BRANCH BLOCK; ; Electronically Signed On 07-12-2016 18:00:41 EST by Teresita Rodriguez; Outcome: 19:30 Discharge Assessment: Patient awake, alert and oriented x 3. No cognitive and/or cf2 functional deficits noted. Patient verbalized understanding of disposition instructions. Patient awake and alert. Oriented to person, place and time. Patient verbalized understanding of disposition instructions. Patient has no functional deficits. patient administered narcotics - no. The following High Risk Discharge criteria are identified: None. Discharged to home. Condition: stable. Discharge instructions given to patient, family, significant other, Instructed on discharge instructions, follow up and referral plans. Demonstrated understanding of instructions. No special radiology studies were completed. 20:47 Discharge ordered by Provider. br1 21:23 Patient left the ED. cf2 Signatures: Dispatcher [employer] EDMS Dalila Diehl, RN RN Severino May, RN RN dwCorinne Mendoza, Vishal High MD MD br1 Jose Fields, YARDING AND FOLDING MACHINE OPERATOR YARDING AND FOLDING MACHINE OPERATOR dd6 Frederic Pickard,RT RT rs5 Joseph Farley Joseph, YARDING AND FOLDING MACHINE OPERATOR YARDING AND FOLDING MACHINE OPERATOR jrd Nohelia Osorio RN RN cf2 Chart Complete MTDD
--- NOTE | 2016-07-13 22:24 | EDDOCDS ---
Physician Documentation [facility] Name: Arcenio Pace Age: 75 yrs Sex: Male : 1940 Arrival Date: 07/11/2016 Time: 17:43 Bed 12 Private MD: Leonidas Floyd MD Disposition: 07/11/16 20:47 Discharged to Home/Self Care. Impression: Chronic obstructive pulmonary disease with (acute) exacerbation. - Condition is Stable. - Discharge Instructions: Chronic Obstructive Pulmonary Disease. - Medication Reconciliation, Local Pharmacy Hours form. - Follow up: Leonidas Floyd; When: 2 - 3 days; Reason: Recheck today's complaints. - Problem is an acute exacerbation. - Symptoms have improved. - Notes: You were seen in the ED for shortness of breath. Bloodwork and EKG of the heart showed no acute findings. Chest Xray could not exclude a small amount of fluid but showed no other acute findings. You were treated and improved with breathing treatment in the ED.
As you are feeling better you may return home. Continue your nebulizers and prednisone as Dr. Floyd has directed you and call Dr. Floyd to arrange to be seen for recheck.
Return to the ED for any return of trouble breathing, chest pain, fever, loss of consciousness or any other concerns. Historical: - Allergies: PENICILLINS; - Home Meds: 1. Albuterol Nebulizer as needed (Last dose: 07/11/2016 16:00) 2. aspirin 81 mg Oral TbEC 1 tab once daily (Last dose: 07/11/2016 08:00) 3. Lasix 20 mg oral tab once daily (Last dose: 07/11/2016 08:00) 4. metoprolol tartrate 25 mg Oral tab 1 tab once daily (Last dose: 07/11/2016) 5. Symbicort 160-4.5 mcg/actuation inhalation HFAA 2 puffs 2 times per day (Last dose: 07/11/2016 08:00) 6. amiodarone 200 mg Oral tab 1 tab once daily (Last dose: 07/11/2016) - PMHx: Atrial Fib; CHF; COPD; - PSHx: Mitral valve repair 2011; - Social history: Smoking status: Patient states former smoker of tobacco. No barriers to communication noted, The patient speaks fluent Algerian. - Family history: Not pertinent. - : The pt / caregiver states he / she is not on anticoagulants. Home medication list is obtained from the patient. - Exposure Risk Screening:: None identified. Vital Signs: 07/11 17:44 BP 109 / 66; Pulse 84; Resp 22 S; Temp 97.1(T); Pulse Ox 94% on R/A; Weight 69.4 kg / dd6 153 lbs (R); Height 5 ft. 10 in. (177.80 cm) (R); 19:30 Pulse 78 MON; Pulse Ox 94% ; cf2 19:30 BP 110 / 57 (auto/); cf2 19:45 Pulse 76 MON; Pulse Ox 93% ; cf2 19:45 BP 119 / 58 (auto/); cf2 20:00 BP 100 / 58 (auto/); cf2 20:00 Pulse 74 MON; Pulse Ox 94% ; cf2 20:15 Pulse 72 MON; Pulse Ox 93% ; cf2 20:15 BP 106 / 59 (auto/); cf2 20:30 Pulse 70 MON; Pulse Ox 93% ; cf2 20:30 BP 108 / 60 (auto/); cf2 20:45 Pulse 74 MON; Pulse Ox 93% ; cf2 20:45 BP 121 / 59 (auto/); cf2 21:00 Pulse 80 MON; Pulse Ox 92% ; cf2 21:00 BP 126 / 60 (auto/); cf2 21:04 Pulse 74 MON; Pulse Ox 92% ; cf2 21:09 Pulse 74 MON; Pulse Ox 90% ; cf2 21:11 Pulse 78 MON; Pulse Ox 90% ; cf2 17:44 Body Mass Index 21.95 (69.40 kg, 177.80 cm) dd6 MDM: 18:04 Art Dealer/Pulse Ox/q 30 min VS ordered. br1 18:04 IV Saline Lock ordered. br1 18:04 Rhythm Strip to chart ordered. br1 18:04 Undress patient appropriately for examination ordered. br1 18:05 Basic Metabolic Profile Ordered. EDMS 18:05 CBC with Diff Ordered. EDMS 18:05 Cardiac Injury Profile Ordered. EDMS 18:05 Troponin Ordered. EDMS 18:05 Chest, 1 View Ordered. EDMS 18:05 ECG WITH READING ER PHYS+CARDIAG ordered. EDMS 18:38 Albuterol-Ipratropium 3 ml Inhalation once ordered. br1 18:38 Call Respiratory ordered. br1 18:38 BNP Ordered. EDMS 18:38 -Influenza A&B Rapid Antigen - Nose Ordered. EDMS 18:43 Call Respiratory complete. jlf 19:18 Financial registration complete. jpb 19:24 [facility] Payment Agreement was scanned into [employer] and attached to record. jpb 19:46 CBC with Diff Reviewed. br1 19:46 BNP Reviewed. br1 19:46 -Influenza A&B Rapid Antigen - Nose Reviewed. br1 19:46 Chest, 1 View Reviewed. br1 19:49 Basic Metabolic Profile Reviewed. br1 19:49 Cardiac Injury Profile Reviewed. br1 19:49 Troponin Reviewed. br1 19:50 Ambulate Patient [facility] Pulse Oximetry ordered. br1 07/12 10:20 T-Sheet-- Draft Copy was scanned into [employer] and attached to record. gb 10:20 ECG/EKG was scanned into [employer] and attached to record. gb 07/13 12:36 EKG-ADULT Reviewed. ml Administered Medications: 07/11 19:01 Drug: Albuterol-Ipratropium 3 ml [ipratropium-albuterol 0.5 mg-3 mg(2.5 mg base)/3 mL rs5 nebulization soln (3 mL)] Route: Inhalation; Signatures: Dispatcher [employer] EDMina Acosta MD MD ml Sleeman, Kacey, RN RN kcs Greene, Daniel, RN RN dwCorinne Mendoza, Reg Reg Biju Okeefe MD MD brJoseph Manrique Jordain, EBENEZER MOTORIZED SQUAD COMMANDING OFFICER jl Nohelia Osorio,TYREE RN cf2 Frederic Pickard RT rs5 The chart was reviewed and I authenticate all verbal orders and agree with the evaluation and treatment provided.Attachments: 19:24 [facility] Payment Agreement [facility] 07/12 10:20 T-Sheet-- Draft Copy gb 10:20 ECG/EKG gb Chart Complete MTDD
== END 2016-07-11 21:23 | disposition home or self-care (01) ==
LOC: M ED 17:43
DX: J44.1 Chronic obstructive pulmonary disease with (acute) exacerbation (principal); I48.91 Unspecified atrial fibrillation; I50.20 Unspecified systolic (congestive) heart failure; Z87.891 Personal history of nicotine dependence; Z79.82 Long term (current) use of aspirin; Z79.899 Other long term (current) drug therapy; Z88.0 Allergy status to penicillin; Z79.51 Long term (current) use of inhaled steroids
CPT/HCPCS: 71010; 80048; 82550; 82553; 83880; 84484; 85025; 87804; 93005; 93041; 94640; 99284; G0463

== ENCOUNTER → 2016-07-26 | Outpatient (CLI) | payer MEDICARE | LOC: M CARPUL 13:48 | PROVIDERS: ATTEND Internal Medicine Cardiovascular Disease | DX: Z95.4 Presence of other heart-valve replacement (principal) ==

== ENCOUNTER → 2016-09-29 | Outpatient (RCR) | payer MEDICARE | LOC: M PR 09-07 08:35 | PROVIDERS: ATTEND Internal Medicine Pulmonary Disease | DX: Z51.89 Encounter for other specified aftercare (principal); J44.9 Chronic obstructive pulmonary disease, unspecified | CPT/HCPCS: G0424 ×7 ==

== ENCOUNTER 2016-10-27 12:57 | Outpatient (RCR) | payer MEDICARE | END 2016-10-29 | LOC: M PR 12:57 | PROVIDERS: ATTEND Internal Medicine Pulmonary Disease | DX: Z51.89 Encounter for other specified aftercare (principal); J44.9 Chronic obstructive pulmonary disease, unspecified | CPT/HCPCS: G0424 ×6 ==

== ENCOUNTER 2016-11-24 13:24 | Outpatient (RCR) | payer MEDICARE | END 2016-11-29 | LOC: M PR 13:24 | PROVIDERS: ATTEND Internal Medicine Pulmonary Disease | DX: Z51.89 Encounter for other specified aftercare (principal); J44.9 Chronic obstructive pulmonary disease, unspecified | CPT/HCPCS: G0424 ×8 ==

== ENCOUNTER 2016-12-01 13:00 | Outpatient (RCR) | payer MEDICARE ==
[~2016-12-01 13:00] MED LIST changes: +AMIO200T PO; -AMIO20TA PO; +DOXY100T2 PO; +METO1TAB32 PO; -METO25TA74 PO; -PRED10TA FT; +PRED10TA2 FT; -PROA1AER INH; +PROAAER10 INH
== END 2016-12-29 ==
LOC: M PR 13:00
PROVIDERS: ATTEND Internal Medicine Pulmonary Disease
DX: J44.9 Chronic obstructive pulmonary disease, unspecified (principal); Z51.89 Encounter for other specified aftercare

== ENCOUNTER → 2016-12-20 | Outpatient (REF) | payer MEDICARE ==
[2016-12-20 13:01] LABS: MEAN CORPUSCULAR HEMOGLOBIN 31.8 pg (27.0-33.0); MEAN CORPUSCULAR HGB CONC 32.8 g/dl (32.0-36.5); MEAN CORPUSCULAR VOLUME 96.9 fl (80.0-96.0); RED CELL DISTRIBUTION WIDTH 13.5 % (11.5-14.5); WHITE BLOOD COUNT 9.2 K/mm3 (4.0-10.0)
[2016-12-20 13:44] LABS: CALCIUM LEVEL 9.5 MG/DL (8.8-10.2); CREATININE FOR GFR 1.72 MG/DL (0.70-1.30); FREE T4 1.5 NG/DL (0.76-1.46); GLOMERULAR FILTRATION RATE 41.3 (>42); POTASSIUM SERUM 5.1 MEQ/L (3.5-5.1)
== END ==
LOC: M SFHCLERA 11:30
PROVIDERS: ATTEND Family Medicine
DX: I48.0 Paroxysmal atrial fibrillation (principal); N18.9 Chronic kidney disease, unspecified; Z95.4 Presence of other heart-valve replacement
CPT/HCPCS: 80048; 84439; 84443; 85027; G0463

== ENCOUNTER → 2016-12-27 | Outpatient (REF) | payer MEDICARE ==
[2016-12-27 17:37] LABS: VITAMIN B12 LEVEL 705 PG/ML (247-911)
[2016-12-27 17:38] LABS: FOLATE > 24.0 NG/ML (>5.4)
[2016-12-27 17:41] LABS: FERRITIN 87 NG/ML (26-388)
[2016-12-27 19:50] LABS: MEAN CORPUSCULAR HEMOGLOBIN 31.7 pg (27.0-33.0); MEAN CORPUSCULAR HGB CONC 32.5 g/dl (32.0-36.5); MEAN CORPUSCULAR VOLUME 97.5 fl (80.0-96.0); RED CELL DISTRIBUTION WIDTH 13.2 % (11.5-14.5); WHITE BLOOD COUNT 8.8 K/mm3 (4.0-10.0)
== END ==
LOC: M SFHCLERA 12:34
PROVIDERS: ATTEND Family Medicine
DX: D64.9 Anemia, unspecified (principal); Z79.01 Long term (current) use of anticoagulants

== ENCOUNTER → 2017-03-08 | Outpatient (CLI) | payer MEDICARE ==
[2017-03-08 09:34] LABS: MEAN CORPUSCULAR HEMOGLOBIN 31.6 pg (27.0-33.0); MEAN CORPUSCULAR HGB CONC 32.1 g/dl (32.0-36.5); MEAN CORPUSCULAR VOLUME 98.3 fl (80.0-96.0); WHITE BLOOD COUNT 5.7 K/mm3 (4.0-10.0)
[2017-03-08 12:24] LABS: ALBUMIN 3.8 GM/DL (3.2-5.2); ALBUMIN/GLOBULIN RATIO 1.31 (1.00-1.93); BILIRUBIN,DIRECT 0.1 MG/DL (0.0-0.2); BILIRUBIN,TOTAL 0.3 MG/DL (0.2-1.0); CALCIUM LEVEL 8.5 MG/DL (8.8-10.2); CREATININE FOR GFR 1.58 MG/DL (0.70-1.30); FREE T4 1.24 NG/DL (0.76-1.46); GLOMERULAR FILTRATION RATE 45.5 (>42); MAGNESIUM LEVEL 2.4 MG/DL (1.8-2.4); POTASSIUM SERUM 4.8 MEQ/L (3.5-5.1); TOTAL PROTEIN 6.7 GM/DL (6.4-8.2)
== END ==
LOC: M LAB 09:01
PROVIDERS: ATTEND Internal Medicine Cardiovascular Disease
DX: Z95.4 Presence of other heart-valve replacement (principal); Z79.899 Other long term (current) drug therapy

== ENCOUNTER → 2017-05-18 | Outpatient (CLI) | payer MEDICARE ==
[2017-05-18 10:06] LABS: MEAN CORPUSCULAR HEMOGLOBIN 31.5 pg (27.0-33.0); MEAN CORPUSCULAR HGB CONC 31.6 g/dl (32.0-36.5); MEAN CORPUSCULAR VOLUME 99.8 fl (80.0-96.0); PLATELET COUNT, AUTOMATED 174 10^3/uL (150-450); RED CELL DISTRIBUTION WIDTH 14.5 % (11.5-14.5); WHITE BLOOD COUNT 6.7 10^3/uL (4.0-10.0)
[2017-05-18 10:52] LABS: ALBUMIN 3.8 GM/DL (3.2-5.2); ALBUMIN/GLOBULIN RATIO 1.23 (1.00-1.93); BILIRUBIN,DIRECT 0.1 MG/DL (0.0-0.2); BILIRUBIN,TOTAL 0.4 MG/DL (0.2-1.0); CALCIUM LEVEL 8.9 MG/DL (8.8-10.2); CREATININE FOR GFR 1.67 MG/DL (0.70-1.30); FREE T4 1.34 NG/DL (0.76-1.46); GLOMERULAR FILTRATION RATE 42.7 (>42); POTASSIUM SERUM 4.8 MEQ/L (3.5-5.1); TOTAL PROTEIN 6.9 GM/DL (6.4-8.2)
== END ==
LOC: M LAB 09:35
PROVIDERS: ATTEND Internal Medicine Cardiovascular Disease
DX: Z95.4 Presence of other heart-valve replacement (principal); Z79.899 Other long term (current) drug therapy

== ENCOUNTER → 2017-06-04 | Outpatient (CLI) | payer MEDICARE ==
--- NOTE | 2017-06-04 15:15 | REP ---
RENAL ULTRASOUND: HISTORY: Chronic renal disease. The right kidney measures 4.5 cm in transverse x 4.2 cm in AP x 10.2 cm in cephalocaudal dimensions. The left kidney measures 4 cm in transverse x 4.4 cm in AP x 11.7 cm in cephalocaudal dimensions. An area with increased echogenicity is present in the upper pole of the right kidney. This measures 2 x 1.6 x 2 cm. A cyst is present in the lower pole of the left kidney. This measures 3.4 x 3.2 x 3 cm. There is a no hydronephrosis or mass. The bladder is not well seen. The prostate gland is enlarged measuring 4.7 x 4.2 x 4.4 cm. IMPRESSION: 1. There is a 3.2 echogenic focus in the upper pole of the right kidney. This mass represent a cyst with calcification. 2. Left renal cyst as described above. 3. Enlarged prostate gland. Signed by Miguel Farris MD 06/04/2017 03:44 P
== END ==
LOC: M RAD 13:06
PROVIDERS: ATTEND Transplant Surgery
DX: N18.3 Chronic kidney disease, stage 3 (moderate) (principal)

== ENCOUNTER → 2017-07-09 | Outpatient (REF) | payer MEDICARE | LOC: M SFHCLERA 16:22 | DX: E03.9 Hypothyroidism, unspecified (principal); Z23 Encounter for immunization | CPT/HCPCS: 84443 ==

== ENCOUNTER → 2017-12-06 | Outpatient (REF) | payer MEDICARE | LOC: M SFHCLERA 14:50 | DX: E03.9 Hypothyroidism, unspecified (principal) | CPT/HCPCS: 84443 ==

== ENCOUNTER → 2017-12-28 | Outpatient (CLI) | payer MEDICARE | LOC: M RAD 11:00 | DX: J44.9 Chronic obstructive pulmonary disease, unspecified (principal) | CPT/HCPCS: 71046 ==

== ENCOUNTER → 2018-05-10 | Outpatient (CLI) | payer MEDICARE ==
[2018-05-10 07:47] LABS: BASO # 0.1 10^3/uL (0.0-0.2); EOS # 0.1 10^3/uL (0.0-0.50); EOS % 0.9 % (0.0-3.0); HEMATOCRIT 43.6 % (42.0-52.0); HEMOGLOBIN 13.8 g/dl (13.5-17.5); IMMATURE GRANULOCYTE % 0.1 % (0-3.0); LYMPH # 1.7 10^3/uL (1.5-4.5); LYMPH % 25.6 % (24.0-44.0); MEAN CORPUSCULAR HGB CONC 31.7 g/dl (32.0-36.5); MEAN CORPUSCULAR VOLUME 101.2 fl (80.0-96.0); MONO # 0.7 10^3/uL (0.0-0.8); MONO % 10.9 % (0.0-5.0); NEUTROPHILS # 4.1 10^3/uL (1.8-7.7); NEUTROPHILS % 61.5 % (36.0-66.0); PLATELET COUNT, AUTOMATED 182 10^3/uL (150-450); RED BLOOD COUNT 4.31 10^6/uL (4.30-6.10); WHITE BLOOD COUNT 6.7 10^3/uL (4.0-10.0)
[2018-05-10 08:17] LABS: ALBUMIN/GLOBULIN RATIO 1.38 (1.00-1.93); ALKALINE PHOSPHATASE 74 U/L (45-117); ALT/SGPT 33 U/L (12-78); ANION GAP 6 MEQ/L (8-16); AST/SGOT 29 U/L (7-37); BILIRUBIN,DIRECT 0.1 MG/DL (0.0-0.2); BILIRUBIN,TOTAL 0.5 MG/DL (0.2-1.0); BLOOD UREA NITROGEN 27 MG/DL (7-18); CALCIUM LEVEL 8.9 MG/DL (8.8-10.2); CARBON DIOXIDE LEVEL 32 MEQ/L (21-32); CHLORIDE LEVEL 103 MEQ/L (98-107); CHOLESTEROL LEVEL 159 MG/DL (<200); CHOLESTEROL RISK RATIO 2.606 (<5); FREE T4 1.57 NG/DL (0.76-1.46); GLOMERULAR FILTRATION RATE 52.2 (>42); GLUCOSE, FASTING 104 MG/DL (70-100); HDL CHOLESTEROL 61 MG/DL (>40); LDL CHOLESTEROL 75 MG/DL (<100); MAGNESIUM LEVEL 2.4 MG/DL (1.8-2.4); NON-HDL-C 98 MG/DL; POTASSIUM SERUM 4.3 MEQ/L (3.5-5.1); SODIUM LEVEL 141 MEQ/L (136-145); TOTAL PROTEIN 6.9 GM/DL (6.4-8.2); TRIGLYCERIDES LEVEL 113 MG/DL (<150)
== END ==
LOC: M LAB 07:00
DX: Z95.4 Presence of other heart-valve replacement (principal); Z79.899 Other long term (current) drug therapy
CPT/HCPCS: 83735

== ENCOUNTER → 2018-06-13 | Outpatient (CLI) | payer MEDICARE ==
[2018-06-13 11:43] LABS: FREE T4 1.22 NG/DL (0.76-1.46)
== END ==
LOC: M LAB 10:26
DX: Z95.4 Presence of other heart-valve replacement (principal); E03.9 Hypothyroidism, unspecified
CPT/HCPCS: 84443

== ENCOUNTER → 2018-10-18 | Outpatient (CLI) | payer MEDICARE ==
[~2018-10-18] MED LIST changes: -LASI20TA PO; +LASI20TA3 PO; +METO1TAB63 PO; -METO25TAB PO
[2018-10-18 08:20] LABS: BASO # 0.1 10^3/uL (0.0-0.2); BASO % 0.8 % (0.0-1.0); EOS # 0.1 10^3/uL (0.0-0.50); EOS % 1.5 % (0.0-3.0); HEMATOCRIT 39.4 % (42.0-52.0); HEMOGLOBIN 12.7 g/dl (13.5-17.5); LYMPH # 1.8 10^3/uL (1.5-4.5); LYMPH % 24.8 % (24.0-44.0); MEAN CORPUSCULAR HEMOGLOBIN 31.8 pg (27.0-33.0); MEAN CORPUSCULAR HGB CONC 32.2 g/dl (32.0-36.5); MEAN CORPUSCULAR VOLUME 98.7 fl (80.0-96.0); MONO # 0.7 10^3/uL (0.0-0.8); MONO % 9.5 % (0.0-5.0); NEUTROPHILS # 4.6 10^3/uL (1.8-7.7); NEUTROPHILS % 63.1 % (36.0-66.0); PLATELET COUNT, AUTOMATED 162 10^3/uL (150-450); RED BLOOD COUNT 3.99 10^6/uL (4.30-6.10); WHITE BLOOD COUNT 7.3 10^3/uL (4.0-10.0)
[2018-10-18 09:01] LABS: ALBUMIN 3.8 GM/DL (3.2-5.2); BILIRUBIN,DIRECT 0.2 MG/DL (0.0-0.2); BILIRUBIN,TOTAL 0.6 MG/DL (0.2-1.0); CALCIUM LEVEL 8.9 MG/DL (8.8-10.2); CREATININE FOR GFR 1.49 MG/DL (0.70-1.30); FREE T4 1.32 NG/DL (0.76-1.46); GLOMERULAR FILTRATION RATE 48.6 (>42); MAGNESIUM LEVEL 2.2 MG/DL (1.8-2.4); POTASSIUM SERUM 4.4 MEQ/L (3.5-5.1); THYROID STIMULATING HORMONE 9.27 uIU/ML (0.358-3.740); TOTAL PROTEIN 6.2 GM/DL (6.4-8.2)
[2018-10-18 11:25] LABS: PLATELET ESTIMATE NORMAL (NORMAL)
== END ==
LOC: M LAB 07:05
PROVIDERS: ATTEND Internal Medicine Cardiovascular Disease
DX: Z95.4 Presence of other heart-valve replacement (principal); E03.9 Hypothyroidism, unspecified

== ENCOUNTER → 2018-11-26 | Outpatient (CLI) | payer MEDICARE ==
[2018-11-26 08:16] LABS: FREE T4 1.23 NG/DL (0.76-1.46); THYROID STIMULATING HORMONE 6.11 uIU/ML (0.358-3.740)
== END ==
LOC: M LAB 07:22
PROVIDERS: ATTEND Internal Medicine Cardiovascular Disease
DX: Z95.4 Presence of other heart-valve replacement (principal); Z79.82 Long term (current) use of aspirin; Z79.899 Other long term (current) drug therapy

== ENCOUNTER → 2018-12-26 | Outpatient (CLI) | payer MEDICARE ==
[2018-12-26 08:57] LABS: FREE T4 1.33 NG/DL (0.76-1.46); THYROID STIMULATING HORMONE 4.79 uIU/ML (0.358-3.740)
== END ==
LOC: M LAB 07:19
PROVIDERS: ATTEND Internal Medicine Cardiovascular Disease
DX: E03.9 Hypothyroidism, unspecified (principal)

== ENCOUNTER → 2019-01-14 | Outpatient (CLI) | payer MEDICARE ==
--- NOTE | 2019-01-14 15:09 | REP ---
PA and lateral chest: Comparison is 12/28/2017. The patient is rotated. The lung lawrence are chronically hyperinflated, unchanged. There are no infiltrates, pleural effusions, nodules or masses. There is diffuse demineralization. Cardiac size is mildly enlarged, unchanged. The diamond and mediastinum are unremarkable. There is diffuse demineralization. Impression: No acute cardiopulmonary findings. Chronic hyperinflation. Electronically Signed by Severino Su MD 01/14/2019 03:00 P
== END ==
LOC: M SMT 14:34
PROVIDERS: ATTEND Internal Medicine Pulmonary Disease
DX: J44.9 Chronic obstructive pulmonary disease, unspecified (principal)

== ENCOUNTER → 2019-02-17 | Outpatient (CLI) | payer MEDICARE ==
[2019-02-17 08:41] LABS: BASO # 0.1 10^3/uL (0.0-0.2); BASO % 1.1 % (0.0-1.0); EOS # 0.1 10^3/uL (0.0-0.50); EOS % 1.3 % (0.0-3.0); HEMATOCRIT 41.8 % (42.0-52.0); HEMOGLOBIN 13.3 g/dl (13.5-17.5); LYMPH # 1.7 10^3/uL (1.5-4.5); LYMPH % 27.3 % (24.0-44.0); MEAN CORPUSCULAR HEMOGLOBIN 31.4 pg (27.0-33.0); MEAN CORPUSCULAR HGB CONC 31.8 g/dl (32.0-36.5); MEAN CORPUSCULAR VOLUME 98.6 fl (80.0-96.0); MONO # 0.6 10^3/uL (0.0-0.8); MONO % 9.8 % (0.0-5.0); NEUTROPHILS # 3.7 10^3/uL (1.8-7.7); NEUTROPHILS % 60.2 % (36.0-66.0); PLATELET COUNT, AUTOMATED 179 10^3/uL (150-450); RED BLOOD COUNT 4.24 10^6/uL (4.30-6.10); WHITE BLOOD COUNT 6.2 10^3/uL (4.0-10.0)
[2019-02-17 09:13] LABS: ALBUMIN 3.6 GM/DL (3.2-5.2); BILIRUBIN,DIRECT 0.2 MG/DL (0.0-0.2); BILIRUBIN,TOTAL 0.6 MG/DL (0.2-1.0); CALCIUM LEVEL 8.9 MG/DL (8.8-10.2); CREATININE FOR GFR 1.34 MG/DL (0.70-1.30); FREE T4 1.26 NG/DL (0.76-1.46); GLOMERULAR FILTRATION RATE 54.7 (>42); MAGNESIUM LEVEL 2.3 MG/DL (1.8-2.4); POTASSIUM SERUM 4.4 MEQ/L (3.5-5.1); THYROID STIMULATING HORMONE 5.36 uIU/ML (0.358-3.740); TOTAL PROTEIN 6.4 GM/DL (6.4-8.2)
== END ==
LOC: M LAB 07:39
PROVIDERS: ATTEND Internal Medicine Cardiovascular Disease
DX: Z95.4 Presence of other heart-valve replacement (principal)

== ENCOUNTER → 2019-05-02 | Outpatient (CLI) | payer MEDICARE ==
[2019-05-02 10:34] LABS: BASO # 0.1 10^3/uL (0.0-0.2); BASO % 1.4 % (0.0-1.0); EOS # 0.1 10^3/uL (0.0-0.5); EOS % 1.7 % (0.0-3.0); HEMATOCRIT 45.2 % (42.0-52.0); HEMOGLOBIN 14.1 g/dl (13.5-17.5); LYMPH # 1.7 10^3/uL (1.5-5.0); LYMPH % 30.2 % (24.0-44.0); MEAN CORPUSCULAR HEMOGLOBIN 31.7 pg (27.0-33.0); MEAN CORPUSCULAR HGB CONC 31.2 g/dl (32.0-36.5); MEAN CORPUSCULAR VOLUME 101.6 fl (80.0-96.0); MONO # 0.6 10^3/uL (0.0-0.8); NEUTROPHILS # 3.2 10^3/uL (1.5-8.5); NEUTROPHILS % 56.4 % (36.0-66.0); PLATELET COUNT, AUTOMATED 162 10^3/uL (150-450); RED BLOOD COUNT 4.45 10^6/uL (4.30-6.10); WHITE BLOOD COUNT 5.7 10^3/uL (4.0-10.0)
[2019-05-02 11:13] LABS: ALBUMIN 3.8 GM/DL (3.2-5.2); BILIRUBIN,TOTAL 0.6 MG/DL (0.2-1.0); CALCIUM LEVEL 9.1 MG/DL (8.8-10.2); CREATININE FOR GFR 1.42 MG/DL (0.70-1.30); FREE T4 1.36 NG/DL (0.76-1.46); GLOMERULAR FILTRATION RATE 51.2 (>42); MAGNESIUM LEVEL 2.2 MG/DL (1.8-2.4); POTASSIUM SERUM 4.3 MEQ/L (3.5-5.1); THYROID STIMULATING HORMONE 4.28 uIU/ML (0.358-3.740); TOTAL PROTEIN 6.6 GM/DL (6.4-8.2)
== END ==
LOC: M LAB 10:05
PROVIDERS: ATTEND Internal Medicine Cardiovascular Disease
DX: Z95.4 Presence of other heart-valve replacement (principal); Z79.899 Other long term (current) drug therapy

== ENCOUNTER → 2019-08-13 | Outpatient (CLI) | payer MEDICARE ==
[2019-08-13 10:44] LABS: FREE T4 1.32 NG/DL (0.76-1.46); THYROID STIMULATING HORMONE 4.06 uIU/ML (0.358-3.740)
== END ==
LOC: M LAB 08:47
PROVIDERS: ATTEND Nurse Practitioner Adult Health
DX: I34.0 Nonrheumatic mitral (valve) insufficiency (principal); Z98.890 Other specified postprocedural states; I48.0 Paroxysmal atrial fibrillation; E03.9 Hypothyroidism, unspecified

== ENCOUNTER 2020-04-19 15:25 | Inpatient (IN) | payer MEDICARE ==
[~2020-04-19] VITALS: Ht 177.8 cm; Wt 66.7 kg
[~2020-04-19 15:25] MED LIST changes: -AMIO200T PO; +AMIO200T3 PO; -ASPI81TA85 PO; +ASPI81TA86 PO
[2020-04-19] MEDS: METOPROLOL 5 MG/5 ML VIAL IV SCH ×3 (15:53→16:28)
[2020-04-19 16:01] LABS: BASO # 0.1 10^3/uL (0.0-0.2); EOS # 0.1 10^3/uL (0.0-0.5); EOS % 0.7 % (0.0-3.0); HEMATOCRIT 43.3 % (42.0-52.0); HEMOGLOBIN 13.1 g/dl (13.5-17.5); LYMPH # 1.7 10^3/uL (1.5-5.0); LYMPH % 23.9 % (24.0-44.0); MEAN CORPUSCULAR HEMOGLOBIN 30.7 pg (27.0-33.0); MEAN CORPUSCULAR HGB CONC 30.3 g/dl (32.0-36.5); MEAN CORPUSCULAR VOLUME 101.4 fl (80.0-96.0); MONO # 0.7 10^3/uL (0.0-0.8); MONO % 10.2 % (0.0-5.0); NEUTROPHILS # 4.6 10^3/uL (1.5-8.5); NEUTROPHILS % 63.8 % (36.0-66.0); PLATELET COUNT, AUTOMATED 190 10^3/uL (150-450); RED BLOOD COUNT 4.27 10^6/uL (4.30-6.10); WHITE BLOOD COUNT 7.2 10^3/uL (4.0-10.0)
--- NOTE | 2020-04-19 16:08 | REPVR ---
PROCEDURE INFORMATION: Exam: XR Chest, 1 View Exam date and time: 04/19/2020 3:53 PM Age: 79 years old Clinical indication: Chest pain; Type not specified TECHNIQUE: Imaging protocol: XR of the chest Views: 1 view. COMPARISON: CR Chest, 1 view 07/11/2016 6:43 PM FINDINGS: Lungs: Unremarkable. No consolidation. Pleural space: Small right pleural effusion. Heart/Mediastinum: Stable prominence of the cardiac silhouette. Vasculature: Calcification of the thoracic aorta. Bones/joints: Unremarkable. IMPRESSION: Small right pleural effusion. Electronically signed by: Shanel Peralta On 04/19/2020 16:08:36 PM
[2020-04-19 16:14] LABS: INR 1.16; PROTHROMBIN TIME 15.1 SECONDS (12.5-14.3)
[2020-04-19 16:35] LABS: ALBUMIN 3.7 GM/DL (3.2-5.2); ALT/SGPT 66 U/L (12-78); BILIRUBIN,DIRECT 0.5 MG/DL (0.0-0.2); BILIRUBIN,TOTAL 1.3 MG/DL (0.2-1.0); BLOOD UREA NITROGEN 28 MG/DL (7-18); CARBON DIOXIDE LEVEL 29 MEQ/L (21-32); CHLORIDE LEVEL 107 MEQ/L (98-107); CK-MB VALUE MASS 11.3 NG/ML (<3.6); CPK CREATINE PHOSPHOKINASE 253 U/L (39-308); CREATININE FOR GFR 1.44 MG/DL (0.70-1.30); FREE T4 1.82 NG/DL (0.76-1.46); GLOMERULAR FILTRATION RATE 50.2 (>35); GLUCOSE, FASTING 106 MG/DL (70-100); LIPASE 138 U/L (73-393); MB/CK RELATIVE INDEX 4.47 (< OR =4); NT-PRO BNP 4211 PG/ML (<450); POTASSIUM SERUM 4.1 MEQ/L (3.5-5.1); SODIUM LEVEL 143 MEQ/L (136-145); THYROID STIMULATING HORMONE 0.499 uIU/ML (0.358-3.740); TOTAL PROTEIN 6.7 GM/DL (6.4-8.2); TROPONIN I < 0.02 NG/ML (< 0.10)
[2020-04-19] MEDS ORDERED: FUROSEMIDE 20MG/2ML VIAL (J1940) IV ONE (17:00)
[2020-04-19] MEDS ORDERED: IPRA0.00 NEB (17:26)
[2020-04-19] MEDS ORDERED: ASPI81TA26 PO (17:26)
[2020-04-19] MEDS ORDERED: SYNT25TA PO (17:26)
[2020-04-19] MEDS ORDERED: VENTAER INH (17:26)
[2020-04-19] MEDS ORDERED: SYNT50TA PO (17:26)
[2020-04-19] MEDS ORDERED: APAP500T10 PO (17:26)
[2020-04-19] MEDS: diltiaZEM 125 MG in NS 100 ML IV SCH ×3 (17:33→20:41)
[2020-04-19] MEDS ORDERED: DIGOXIN INJ 0.5 MG/2 ML AMP (J1160) IV ONE ×2 (18:15→20:45)
[2020-04-19] MEDS ORDERED: ACETAMINOPHEN 500 MG TAB PO PRN (18:45)
[2020-04-19] MEDS ORDERED: LEVALBUTEROL 1.25 MG/0.5 ML CONCENTRATE NEB INH PRN (18:45)
--- NOTE | 2020-04-19 18:46 | HPEPDOC ---
General Date of Admission 04/19/20 Date of Service: Apr 19, 2020 Chief Complaint The patient is a 79-year-old male admitted with a reason for visit of Short Of Breath. Source: Patient, RN/MD History of Present Illness 79 year-old male with past medical history of COPD, follows with Dr. Rivas, paroxysmal atrial fibrillation not on anticoagulation because of history of GI bleed diastolic congestive heart failure with last known EF of 55% in 2019. 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 fib. . He was also noted to have a edema and elevated JVD so was sent to the ED for a evaluation for A. fib with RVR and CHF. Patient reports that he has been feeling short of breath for the past 2 weeks, but he has been attributing it to wearing mask so did not contact any of his physicians. He also reports that in his home blood pressure machine he has been seeing his heart rates anywhere between 160 to 180 for the past 1 month. He was seen by his primary care doctor in the past month and there he showed he is some blood pressure and heart rate chart and was said everything was okay so he did not be pay any attention to the high heart rate numbers. Patient's heart rate was 130 to 140 in the ED. Patient was happy that his heart rate numbers are much lower than what he was getting at home He also reports that his shoes have been feeling tight and he was planning to get a shoe of higher size. On further questioning, he reports that he used to wear a size 10 shoe 2 years ago and now he's wearing a size 13. He does report some cough especially after he uses his nebulizer or inhalers. He denies any palpitation, lightheadedness or dizziness. ED provider spoke with the Dr. Hinds in [place] wheezes at the partner of Dr. 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 Dr. Hinds recommended diltiazem drip and Lasix. Patient was admitted for diastolic CHF exacerbation and A. fib with RVR. Home Medications Scheduled Aspirin (Aspirin EC) 81 Mg Tablet.dr, 81 MG PO DAILY, (Reported) Budesonide/Formoterol (Symbicort 160-4.5 Mcg Inhaler) 60 Puff/Inhaler Aers, 2 PUFFS INH BID, (Reported) Furosemide (Lasix) 20 Mg Tab, 20 MG PO DAILY, (Reported) Levothyroxine Sodium (Synthroid) 25 Mcg Tablet, 25 MCG PO Q2D, (Reported) Levothyroxine Sodium (Synthroid) 50 Mcg Tablet, 50 MCG PO Q2D, (Reported) Multivitamin (Multi-Vitamin Daily) 1 Tab Tab, 1 TAB PO DAILY, (Reported) Scheduled PRN Acetaminophen (Acetaminophen) 500 Mg Tablet, 500 MG PO Q4H PRN for PAIN, (Reported) Albuterol Sulfate (Ventolin Hfa) 18 Gm Hfa.aer.ad, 2 PUFF INH Q2H PRN for SOB/WHEEZING, (Reported) Ipratropium/Albuterol Sulfate (Iprat-Albut 0.5-3(2.5) mg/3 ml) 3 Ml Ampul.neb, 1 VIAL NEB Q6H PRN for SHORTNESS OF BREATH, (Reported) Allergies Coded Allergies: Penicillins (Verified Allergy, Mild, RASH ON FACE, 04/19/20) Past Medical History Medical History COPD PAROXYSMAL ATRIAL FIBRILLATION DIASTOLIC CHF Last EF of 55% in 2019 as per physics department chair Dr Virk. HAND ARTHRITIS MITRAL REGURGITATION s/p repair AMIODARONE INDUCED ABNORMAL PFTS CKD stage 3 H/O GIB so not on anticoagulation Surgical History ROBOTIC MITRAL VALVE REPAIR 08/01/2012 HEART ABLATION 08/01/2012 BRAIN SURGERY (INTRACRANIAL HEMORRHAGE) 06/07/2007 Family History FATHER: 74 YRS, BRAIN HEMORRHAGE, HTN, [place] MOTHER: 85 YRS, COLON INFECTION, KIDNEY FAILURE, HTN, [place] SIBLINGS: , LYMPHOMA, HTN, DIABETES Social History * Smoker: former Smoker Alcohol: Denies Drugs: denies A-FIB/CHADSVASC A-FIB History Current/History of A-Fib/PAF?: Yes Current PO Anticoag Therapy: No Review of Systems Constitutional: Denies: Chills, Fever, Night Sweats Eyes: Denies: Pain, Vision change ENT: Denies: Head Aches, Ear Pain, Dysphagia Skin: Denies: Lesions, Breakdown Pulmonary: Reports: Dyspnea, Cough Cardiovascular: Reports: Edema; Denies: Chest Pain, Palpitations, Orthopnea, Paroxysmal Noc. Dyspnea, Lt Headedness Gastrointestinal: Denies: Nausea, Vomiting, Abdominal Pain, Diarrhea Genitourinary: Denies: Dysuria, Frequency, Incontinence, Retention Hematologic: Denies: Bruising, Bleeding Excessively Musculoskeletal: Denies: Neck Pain, Back Pain, Joint Pain, Muscle Pain, Spasms Physical Examination General Exam: Positive: Alert, Cooperative, No Acute Distress Eye Exam: Positive: PERRLA, Conjunctiva & lids normal, EOMI; Negative: Sclera icteric Neck Exam: Positive: Supple, JVD; Negative: thyromegaly Chest Exam: Positive: Rales (bilateral basal crackles), Diminished Heart Exam: Positive: Tachycardic, Irregular Rhythm, Normal S1, Normal S2, Murmurs; Negative: Gallops, Rubs Telemetry: Positive: Atrial fibrillation, Tachycardia Abdomen Exam: Positive: Normal bowel sounds, Soft; Negative: Tenderness, Hepatospenomegaly Extremity Exam: Positive: Edema (4+ BIPEDAL EDEMA); Negative: Clubbing, Cyanosis Skin Exam: Positive: Nl turgor and temperature, Rash; Negative: Breakdown, Lesion Neuro Exam: Positive: Normal Speech, Strength at 5/5 X4 ext, Normal Tone Vital Signs Vital Signs Date Time Temp Pulse Resp B/P (MAP) Pulse Ox O2 Delivery O2 Flow Rate FiO2 04/19/20 16:28 133 121/85 04/19/20 16:15 97 04/19/20 16:15 98.0 28 Room Air Laboratory Data Labs 24H Laboratory Tests 2 04/19/20 15:50: Immature Granulocyte % (Auto) 0.4, Neutrophils (%) (Auto) 63.8, Lymphocytes (%) (Auto) 23.9L, Monocytes (%) (Auto) 10.2H, Eosinophils (%) (Auto) 0.7, Basophils (%) (Auto) 1.0, Neutrophils # (Auto) 4.6, Lymphocytes # (Auto) 1.7, Monocytes # (Auto) 0.7, Eosinophils # (Auto) 0.1, Basophils # (Auto) 0.1, Nucleated Red Blood Cells % (auto) 0.0, Prothrombin Time 15.1H, Prothromb Time International Ratio 1.16, Activated Partial Thromboplast Time 37.0, Anion Gap 7L, Glomerular Filtration Rate 50.2, Calcium Level 9.0, Total Bilirubin 1.3H, Direct Bilirubin 0.5H, Aspartate Amino Transf (AST/SGOT) 51H, Alanine Aminotransferase (ALT/SGPT) 66, Alkaline Phosphatase 95, Total Creatine Kinase 253, Creatine Kinase MB 11.3H, Creatine Kinase MB Relative Index 4.47H, Troponin I < 0.02, HQ-Zsj-J-Type Natriuretic Peptide 4211H, Total Protein 6.7, Albumin 3.7, Albumin/Globulin Rat io 1.2, Lipase 138, Thyroid Stimulating Hormone (TSH) 0.499, Free Thyroxine 1.82H CBC/BMP Laboratory Tests 04/19/20 15:50 Assessment/Plan 79 year-old male with past medical history of COPD, follows with Dr. Rivas, paroxysmal atrial fibrillation not on anticoagulation because of history of GI bleed diastolic congestive heart failure with last known EF of 55% in 2019. 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 fib. He was also noted to have a edema and elevated JVD so was sent to the ED for a evaluation for A. fib with RVR and CHF. Patient reports that he has been feeling short of breath for the past 2 weeks, but he has been attributing it to wearing mask so did not contact any of his physicians. He also reports that in his home blood pressure machine he has been seeing his heart rates anywhere between 160 to 180 for the past 1 month. He was seen by his primary care doctor in the past month and there he showed his home blood pressure and heart rate chart and was said everything was okay so he did not pay any attention to the high heart rate numbers. Patient's heart rate was 130 to 140 in the ED. Patient was happy that his heart rate numbers are much lower than what he was getting at home. He also reports that his shoes have been feeling tight and that he was planning to get a shoe of higher size. On further questioning, he reports that he used to wear a size 10 shoe 2 years ago and now he's wearing a size 13. He does report some cough especially after he uses his nebulizer or inhalers. He denies any palpitation, lightheadedness or dizziness. ED provider spoke with the Dr. Hinds in [place] wheezes at the partner of Dr. 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 Dr. Hinds recommended diltiazem drip and Lasix. Patient was admitted for diastolic CHF exacerbation and A. fib with RVR. Afib with RVR will control rate with diltiazem gtt and digoxin loading echocardiogram Not on anticoagulation due to history of GI bleed CHF exacerbation will get new echo. Last year he had a normal EF but now his EF may be lower related to persistently high hear rate for more than a month. Lasix IV I/o 2 g sodium diet, daily weights COPD Continue Symbicort and Xopenex when necessary Hypothyroid Synthroid Plan / VTE VTE Prophylaxis Ordered?: Yes JACI VAN MD Apr 19, 2020 17:23
[2020-04-19] MEDS: SYMBICORT 160/4.5MCG INHALER 6GM INH SCH (20:00)
[2020-04-19 20:28] VITALS: BP 133/97
[2020-04-19] MEDS: DOCUSATE SODIUM 100 MG CAP PO SCH (20:46)
[2020-04-19 21:00] VITALS: BP 123/82
[2020-04-19 22:00] VITALS: BP 129/95
[2020-04-19] MEDS ORDERED: DIGOXIN 0.125 MG TAB PO ONE (22:00)
[2020-04-19] MEDS: FUROSEMIDE 40MG/4ML VIAL (J1940) IV SCH (23:03)
[2020-04-20] VITALS (15 sets, daily range): BP systolic 86–146; BP diastolic 54–78
[2020-04-20] MEDS ORDERED: DIGOXIN INJ 0.5 MG/2 ML AMP (J1160) IV ONE ×5 (01:00→08:45)
[2020-04-20 04:57] LABS: BASO # 0.1 10^3/uL (0.0-0.2); EOS # 0.1 10^3/uL (0.0-0.5); EOS % 0.9 % (0.0-3.0); HEMOGLOBIN 13.4 g/dl (13.5-17.5); LYMPH # 1.8 10^3/uL (1.5-5.0); LYMPH % 25.9 % (24.0-44.0); MEAN CORPUSCULAR HEMOGLOBIN 31.2 pg (27.0-33.0); MEAN CORPUSCULAR HGB CONC 31.2 g/dl (32.0-36.5); MEAN CORPUSCULAR VOLUME 100.2 fl (80.0-96.0); MONO # 0.8 10^3/uL (0.0-0.8); MONO % 11.7 % (0.0-5.0); NEUTROPHILS # 4.2 10^3/uL (1.5-8.5); NEUTROPHILS % 60.2 % (36.0-66.0); PLATELET COUNT, AUTOMATED 184 10^3/uL (150-450); RED BLOOD COUNT 4.29 10^6/uL (4.30-6.10)
[2020-04-20 05:18] LABS: CALCIUM LEVEL 8.7 MG/DL (8.8-10.2); CREATININE FOR GFR 1.27 MG/DL (0.70-1.30); GLOMERULAR FILTRATION RATE 58.1 (>35); POTASSIUM SERUM 3.6 MEQ/L (3.5-5.1)
[2020-04-20] MEDS: LEVOTHYROXINE 50MCG TABLET (0.05MG) PO SCH (05:33)
[2020-04-20] MEDS: FUROSEMIDE 40MG/4ML VIAL (J1940) IV SCH ×2 (05:34→11:22)
[2020-04-20] MEDS: DOCUSATE SODIUM 100 MG CAP PO SCH ×2 (07:38→20:11)
[2020-04-20] MEDS: ASPIRIN 81 MG ENTERIC TAB PO SCH (07:38)
[2020-04-20] MEDS: SYMBICORT 160/4.5MCG INHALER 6GM INH SCH ×2 (08:07→20:10)
[2020-04-20 08:17] LABS: MAGNESIUM LEVEL 2.2 MG/DL (1.8-2.4)
--- NOTE | 2020-04-20 08:20 | ECGEPIP ---
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
[2020-04-20] MEDS: DIGOXIN 0.25 MG TAB PO SCH (08:57)
--- NOTE | 2020-04-20 09:12 | IPNPDOC ---
Text Note Date of Service The patient was seen on 04/20/20. NOTE Subjective: Patient does not have any complaints this morning. Denies any SOB or palpitation. His leg swelling is much improved today. His heart rate had gone down to 40-50 at around 2 am when his diltiazem was stopped. he remained at 80 to 90 range till about 7 am then now he is again up to 120s. He is now in aflutter. Physical Exam: Vitals:As below. General Exam: Positive: Alert, Cooperative, No Acute Distress Eye Exam: Positive: PERRLA, Conjunctiva & lids normal, EOMI; Negative: Sclera icteric Neck Exam: Positive: Supple, JVD; Negative: thyromegaly Chest Exam: Positive: Rales (bilateral basal crackles), Diminished Heart Exam: Positive: Tachycardic, Irregular Rhythm, Normal S1, Normal S2, Murmurs; Negative: Gallops, Rubs Telemetry: Positive: Atrial fibrillation, Tachycardia Abdomen Exam: Positive: Normal bowel sounds, Soft; Negative: Tenderness, Hepatospenomegaly Extremity Exam: Positive: Edema (3+ BIPEDAL EDEMA); Negative: Clubbing, Cyanosis Skin Exam: Positive: Nl turgor and temperature, Rash; Negative: Breakdown, Lesion Neuro Exam: Positive: Normal Speech, Strength at 5/5 X4 ext, Normal Tone Labs and radiology: reviewed Assessment and Plan: 79 year-old male with past medical history of COPD, follows with Dr. Rivas, paroxysmal atrial fibrillation not on anticoagulation because of history of GI bleed diastolic congestive heart failure with last known EF of 55% in 2019. 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 fib. He was also noted to have a edema and elevated JVD so was sent to the ED for A. fib with RVR and CHF. Afib/ Aflutter with RVR pulse had gone down a lot with diltiazem with 2 sec pauses. so stopped will control rate with metoprolol and digoxin. echocardiogram Not on anticoagulation due to history of GI bleed CHF exacerbation will get new echo. Last year he had a normal EF but now his EF may be lower related to persistently high heart rate for more than a month. Lasix IV I/o 2 g sodium diet, daily weights COPD Continue Symbicort and Xopenex when necessary Hypothyroid Synthroid VS,Fishbone, I+O VS, Fishbone, I+O Laboratory Tests 04/19/20 15:50 04/20/20 04:40 Vital Signs Date Time Temp Pulse Resp B/P (MAP) Pulse Ox O2 Delivery O2 Flow Rate FiO2 04/20/20 08:57 126 04/20/20 08:08 16 04/20/20 08:00 98.2 126/68 (87) 94 Room Air I&O- Last 24 Hours up to 6 AM 04/20/20 06:00 Intake Total 840 ml Output Total 1850 ml Balance -1010 ml JACI VAN MD Apr 20, 2020 09:12
[2020-04-20] MEDS ORDERED: METOPROLOL TART 25 MG TABLET PO SCH (12:00)
[2020-04-20] MEDS ORDERED: FUROSEMIDE 40MG/4ML VIAL (J1940) IV SCH (16:00)
[2020-04-20] MEDS: METOPROLOL TART 25 MG TABLET PO SCH ×2 (17:41→23:47)
[2020-04-21 04:00] VITALS: BP 110/90
[2020-04-21 04:52] LABS: BASO % 0.5 % (0.0-1.0); EOS % 0.5 % (0.0-3.0); HEMATOCRIT 42.5 % (42.0-52.0); HEMOGLOBIN 13.1 g/dl (13.5-17.5); LYMPH # 1.6 10^3/uL (1.5-5.0); LYMPH % 19.9 % (24.0-44.0); MEAN CORPUSCULAR HEMOGLOBIN 30.6 pg (27.0-33.0); MEAN CORPUSCULAR HGB CONC 30.8 g/dl (32.0-36.5); MEAN CORPUSCULAR VOLUME 99.3 fl (80.0-96.0); MONO # 0.9 10^3/uL (0.0-0.8); MONO % 11.4 % (0.0-5.0); NEUTROPHILS # 5.3 10^3/uL (1.5-8.5); NEUTROPHILS % 67.4 % (36.0-66.0); PLATELET COUNT, AUTOMATED 185 10^3/uL (150-450); RED BLOOD COUNT 4.28 10^6/uL (4.30-6.10); WHITE BLOOD COUNT 7.9 10^3/uL (4.0-10.0)
[2020-04-21 05:14] LABS: BLOOD UREA NITROGEN 28 MG/DL (7-18); CALCIUM LEVEL 8.1 MG/DL (8.8-10.2); CARBON DIOXIDE LEVEL 30 MEQ/L (21-32); CHLORIDE LEVEL 104 MEQ/L (98-107); CREATININE FOR GFR 1.22 MG/DL (0.70-1.30); GLOMERULAR FILTRATION RATE > 60.0 (>35); GLUCOSE, FASTING 85 MG/DL (70-100); POTASSIUM SERUM 3.5 MEQ/L (3.5-5.1); SODIUM LEVEL 143 MEQ/L (136-145)
[2020-04-21] MEDS: METOPROLOL TART 25 MG TABLET PO SCH ×3 (05:22→18:05)
[2020-04-21] MEDS: LEVOTHYROXINE 25MCG TABLET (0.025MG) PO SCH (05:38)
[2020-04-21] MEDS: SYMBICORT 160/4.5MCG INHALER 6GM INH SCH ×2 (07:46→18:03)
[2020-04-21 08:00] VITALS: BP 112/75
[2020-04-21] MEDS: ASPIRIN 81 MG ENTERIC TAB PO SCH (08:44)
[2020-04-21] MEDS: DOCUSATE SODIUM 100 MG CAP PO SCH ×2 (08:44→21:08)
[2020-04-21] MEDS: DIGOXIN 0.25 MG TAB PO SCH (08:44)
[2020-04-21] MEDS ORDERED: FUROSEMIDE 20MG/2ML VIAL (J1940) IV SCH (09:00)
[2020-04-21 12:00] VITALS: BP 119/74
--- NOTE | 2020-04-21 12:36 | IPNPDOC ---
Text Note Date of Service The patient was seen on 04/21/20. NOTE Subjective: Patient does not have any complaints this morning. Denies any SOB or palpitation. His leg swelling is much improved today. His heart rate is slowing down intermittently to 40s to 50s then again rising up to 90s to 120s. He did become confused overnight requiring a sitter. cumulative negative balance of >1800 cc till now. Physical Exam: Vitals:As below. General Exam: Positive: Alert, Cooperative, No Acute Distress Eye Exam: Positive: PERRLA, Conjunctiva & lids normal, EOMI; Negative: Sclera icteric Neck Exam: Positive: Supple, JVD negative Negative: thyromegaly Chest Exam: Positive: Diminished at both bases, crackles improved. Heart Exam: Positive: rate varying, Irregular Rhythm, Normal S1, Normal S2, Murmurs; Negative: Gallops, Rubs Telemetry: Positive: Atrial fibrillation, Tachycardia Abdomen Exam: Positive: Normal bowel sounds, Soft; Negative: Tenderness, Hepatospenomegaly Extremity Exam: Positive: Edema (2+ BIPEDAL EDEMA); Negative: Clubbing, Cyanosis Skin Exam: Positive: Nl turgor and temperature, Rash; Negative: Breakdown, Lesion Neuro Exam: Positive: Normal Speech, Strength at 5/5 X4 ext, Normal Tone Labs and radiology: reviewed Assessment and Plan: 79 year-old male with past medical history of COPD, follows with Dr. Rivas, paroxysmal atrial fibrillation not on anticoagulation because of history of GI bleed diastolic congestive heart failure with last known EF of 55% in 2019. 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 fib. He was also noted to have a edema and elevated JVD so was sent to the ED for A. fib with RVR and CHF. Afib/ Aflutter with RVR will control rate with metoprolol and digoxin. echocardiogram done Not on anticoagulation due to history of GI bleed, No recent bleeding high risk for stroke will start on lovenox. CHF exacerbation will get new echo. Last year he had a normal EF but now his EF may be lower related to persistently high heart rate for more than a month. Lasix IV I/o 2 g sodium diet, daily weights COPD Continue Symbicort and Xopenex when necessary Hypothyroid Synthroid DVT prophylaxis in place. VS,Fishbone, I+O VS, Fishbone, I+O Laboratory Tests 04/21/20 04:35 Vital Signs Date Time Temp Pulse Resp B/P (MAP) Pulse Ox O2 Delivery O2 Flow Rate FiO2 04/21/20 05:22 45 04/21/20 04:00 97.5 18 110/90 (97) 95 Room Air I&O- Last 24 Hours up to 6 AM 04/21/20 07:00 Intake Total 880 ml Output Total 1800 ml Balance -920 ml JACI VAN MD Apr 21, 2020 06:46
[2020-04-21] MEDS ORDERED: SLF 3 ML SYR IV PRN (13:00)
[2020-04-21] MEDS: SLF 3 ML SYR IV SCH ×2 (14:43→21:08)
[2020-04-21 16:00] VITALS: BP 93/62
[2020-04-21] MEDS: ENOXAPARIN 40MG/0.4ML SYRINGE (J1650 PER 10MG) SC SCH (16:10)
[2020-04-21 17:30] VITALS: BP 123/54
[2020-04-21 20:50] VITALS: BP 96/55
[2020-04-22] VITALS (8 sets, daily range): BP systolic 104–138; BP diastolic 57–79
[2020-04-22] MEDS: ENOXAPARIN 40MG/0.4ML SYRINGE (J1650 PER 10MG) SC SCH ×2 (03:35→16:18)
[2020-04-22 05:41] LABS: BASO # 0.1 10^3/uL (0.0-0.2); BASO % 0.7 % (0.0-1.0); EOS # 0.1 10^3/uL (0.0-0.5); EOS % 1.1 % (0.0-3.0); HEMATOCRIT 41.7 % (42.0-52.0); LYMPH # 1.9 10^3/uL (1.5-5.0); LYMPH % 27.1 % (24.0-44.0); MEAN CORPUSCULAR HEMOGLOBIN 30.4 pg (27.0-33.0); MEAN CORPUSCULAR HGB CONC 31.2 g/dl (32.0-36.5); MEAN CORPUSCULAR VOLUME 97.7 fl (80.0-96.0); MONO # 1.1 10^3/uL (0.0-0.8); MONO % 15.5 % (0.0-5.0); NEUTROPHILS # 3.9 10^3/uL (1.5-8.5); NEUTROPHILS % 55.3 % (36.0-66.0); PLATELET COUNT, AUTOMATED 177 10^3/uL (150-450); RED BLOOD COUNT 4.27 10^6/uL (4.30-6.10); WHITE BLOOD COUNT 7.1 10^3/uL (4.0-10.0)
[2020-04-22 05:54] LABS: BLOOD UREA NITROGEN 33 MG/DL (7-18); CREATININE FOR GFR 1.21 MG/DL (0.70-1.30); GLOMERULAR FILTRATION RATE > 60.0 (>35); GLUCOSE, FASTING 84 MG/DL (70-100); SODIUM LEVEL 141 MEQ/L (136-145)
[2020-04-22 05:55] LABS: CALCIUM LEVEL 8.1 MG/DL (8.8-10.2); CARBON DIOXIDE LEVEL 30 MEQ/L (21-32); CHLORIDE LEVEL 104 MEQ/L (98-107); POTASSIUM SERUM 3.4 MEQ/L (3.5-5.1)
[2020-04-22] MEDS: METOPROLOL TART 25 MG TABLET PO SCH ×2 (06:00→18:26)
[2020-04-22] MEDS: LEVOTHYROXINE 50MCG TABLET (0.05MG) PO SCH (06:00)
[2020-04-22] MEDS: SLF 3 ML SYR IV SCH ×3 (06:08→21:46)
[2020-04-22] MEDS: SYMBICORT 160/4.5MCG INHALER 6GM INH SCH ×2 (07:30→19:52)
[2020-04-22] MEDS ORDERED: METOPROLOL TART 25 MG TABLET PO ONE (07:30)
[2020-04-22] MEDS: DOCUSATE SODIUM 100 MG CAP PO SCH ×2 (08:39→21:00)
[2020-04-22] MEDS: ASPIRIN 81 MG ENTERIC TAB PO SCH (08:39)
[2020-04-22] MEDS: DIGOXIN 0.25 MG TAB PO SCH (08:40)
[2020-04-22] MEDS: FUROSEMIDE 20MG/2ML VIAL (J1940) IV SCH (08:41)
--- NOTE | 2020-04-22 10:07 | ECHO ---
DATE OF PROCEDURE: 04/20/2020 Age: 79 Gender: Male Height: 70 inches Weight: 156 pounds Body surface area: 1.88 m2 PLAN OF CARE: Inpatient progressive care unit (PCU), Room 3210. REFERRING PHYSICIAN: Madiha Tomas MD. INDICATION: Congestive heart failure (CHF). MEASUREMENTS: 2D Measurements: RV 4.2 cm LV 5.0 cm Septum 1.0 cm Posterior wall 1.0 cm Aortic Root 3.6 cm LA 4.6 cm LVEF 65% Doppler Measurements: AV 0.98 m/s LVOT 0.84 m/s LVOT diameter 1.9 cm MV-E 128 Early mitral deceleration time 121 m/s E prime medial 7.2, A prime lateral 9.9 Average E/E prime ratio 15/PCWP 28.5 mmHg PV 0.6 m/s Pulmonary artery acceleration time 79 m/s PASP 48 mmHg IVC 2.2 cm COMMENTS: Underlying atrial fibrillation with somewhat tachy-scot response with rates up to 130 beats per minute with intermittent pauses of at least 1-2 seconds. Intraventricular conduction disturbance. Technically challenging study, but some diagnostically useful information was still obtained. M-mode and two-dimensional echocardiography was performed with pulse, continuous wave, color flow, and tissue Doppler studies. Normal left ventricular size, wall thickness, and wall motion. Mildly dilated right ventricle with right ventricle free wall hypokinesis and Doppler evidence of at least moderate pulmonary hypertension. Prominently dilated right atrium with inferior vena cava (IVC) upper limits of normal with adequate respiratory collapse against an elevated central venous pressure at this time. Prominently dilated left atrium. Normal aortic dimensions. Mild aortic valvular sclerosis without functional valvular abnormality. Moderate degenerative changes of the mitral valvular apparatus with mild insufficiency. Normal appearing tricuspid valve with mild-moderate insufficiency. No apparent intracardiac mass or pericardial effusion. MTDD
--- NOTE | 2020-04-22 12:52 | IPNPDOC ---
Text Note Date of Service The patient was seen on 04/22/20. NOTE Subjective: Patient does not have any complaints this morning. Denies any SOB or palpitation. His leg swelling is much improved. His heart rate is slowing down intermittently to 40s to 50s then again rising up to 120s. Physical Exam: Vitals:As below. General Exam: Positive: Alert, Cooperative, No Acute Distress Eye Exam: Positive: PERRLA, Conjunctiva & lids normal, EOMI; Negative: Sclera icteric Neck Exam: Positive: Supple, JVD negative Negative: thyromegaly Chest Exam: Positive: Diminished at both bases, crackles improved. Heart Exam: Positive: rate varying, Irregular Rhythm, Normal S1, Normal S2, Murmurs; Negative: Gallops, Rubs Telemetry: Positive: Atrial fibrillation, Tachycardia Abdomen Exam: Positive: Normal bowel sounds, Soft; Negative: Tenderness, Hepatospenomegaly Extremity Exam: Positive: Edema (2+ BIPEDAL EDEMA); Negative: Clubbing, Cyanosis Skin Exam: Positive: Nl turgor and temperature, Rash; Negative: Breakdown, Lesion Neuro Exam: Positive: Normal Speech, Strength at 5/5 X4 ext, Normal Tone Labs and radiology: reviewed Assessment and Plan: 79 year-old male with past medical history of COPD, follows with Dr. Rivas, paroxysmal atrial fibrillation not on anticoagulation because of history of GI bleed diastolic congestive heart failure with last known EF of 55% in 2019. 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 fib. He was also noted to have a edema and elevated JVD so was sent to the ED for A. fib with RVR and CHF. Afib/ Aflutter with RVR will control rate with metoprolol and digoxin. echocardiogram done Not on anticoagulation due to history of GI bleed, No recent bleeding high risk for stroke started on lovenox. CHF exacerbation will get new echo. Last year he had a normal EF but now his EF may be lower related to persistently high heart rate for more than a month. Lasix IV I/o 2 g sodium diet, daily weights COPD Continue Symbicort and Xopenex when necessary Hypothyroid Synthroid DVT prophylaxis in place. VS,Fishbone, I+O VS, Fishbone, I+O Laboratory Tests 04/22/20 05:09 Vital Signs Date Time Temp Pulse Resp B/P (MAP) Pulse Ox O2 Delivery O2 Flow Rate FiO2 04/22/20 12:00 96.8 52 18 112/79 (90) 96 Room Air I&O- Last 24 Hours up to 6 AM 04/22/20 07:00 Intake Total 870 ml Output Total 100 ml Balance 770 ml JACI VAN MD Apr 22, 2020 12:52
[2020-04-22] MEDS ORDERED: POTASSIUM CHLORIDE 10 MEQ SR TABLET PO ONE (13:00)
[2020-04-23] VITALS: BP 127/65
[2020-04-23] MEDS: ENOXAPARIN 40MG/0.4ML SYRINGE (J1650 PER 10MG) SC SCH (03:35)
[2020-04-23 04:00] VITALS: BP 143/95
[2020-04-23 05:37] LABS: BASO # 0.1 10^3/uL (0.0-0.2); BASO % 0.9 % (0.0-1.0); EOS # 0.1 10^3/uL (0.0-0.5); EOS % 1.4 % (0.0-3.0); HEMATOCRIT 41.6 % (42.0-52.0); HEMOGLOBIN 13.2 g/dl (13.5-17.5); LYMPH # 1.9 10^3/uL (1.5-5.0); LYMPH % 28.2 % (24.0-44.0); MEAN CORPUSCULAR HEMOGLOBIN 31.1 pg (27.0-33.0); MEAN CORPUSCULAR HGB CONC 31.7 g/dl (32.0-36.5); MEAN CORPUSCULAR VOLUME 98.1 fl (80.0-96.0); MONO # 0.8 10^3/uL (0.0-0.8); MONO % 12.7 % (0.0-5.0); NEUTROPHILS # 3.7 10^3/uL (1.5-8.5); NEUTROPHILS % 56.5 % (36.0-66.0); PLATELET COUNT, AUTOMATED 184 10^3/uL (150-450); RED BLOOD COUNT 4.24 10^6/uL (4.30-6.10); WHITE BLOOD COUNT 6.6 10^3/uL (4.0-10.0)
[2020-04-23 06:14] LABS: BLOOD UREA NITROGEN 27 MG/DL (7-18); CALCIUM LEVEL 8.6 MG/DL (8.8-10.2); CARBON DIOXIDE LEVEL 28 MEQ/L (21-32); CHLORIDE LEVEL 109 MEQ/L (98-107); DIGOXIN LEVEL 1.6 NG/ML (0.5-2.0); GLOMERULAR FILTRATION RATE > 60.0 (>35); GLUCOSE, FASTING 82 MG/DL (70-100); SODIUM LEVEL 142 MEQ/L (136-145)
[2020-04-23] MEDS: LEVOTHYROXINE 25MCG TABLET (0.025MG) PO SCH (06:15)
[2020-04-23 06:16] VITALS: BP 141/91
[2020-04-23] MEDS: METOPROLOL TART 25 MG TABLET PO SCH (06:16)
[2020-04-23] MEDS: SLF 3 ML SYR IV SCH ×2 (06:18→13:44)
[2020-04-23] MEDS: SYMBICORT 160/4.5MCG INHALER 6GM INH SCH (07:17)
[2020-04-23 08:00] VITALS: BP 126/80
--- NOTE | 2020-04-23 08:11 | ECGEPIP ---
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1940 Requested By: JACI VAN Order Number: [id number] Reading MD: Von Cohen Measurements Intervals [place] Rate: 61 P: 128 GA: 201 QRS: 63 QRSD: 118 T: 78 QT: 393 QTc: 399 Interpretive Statements Underlying atrial fibrillation with controlled ventricular response Isolated PVC Right bundle branch block Low limb voltages with slow precordial R wave progression and persistent S wave V5 and V6; body habitus versus pulmonary disease Primary lateral ST/T wave abnormalities more marked despite slower rate from 04/19/20 Clinical correlation advised Electronically Signed on 04-23-2020 8:11:21 EDT by Von Cohen
[2020-04-23] MEDS: DIGOXIN 0.25 MG TAB PO SCH (09:00)
[2020-04-23] MEDS: ASPIRIN 81 MG ENTERIC TAB PO SCH (09:11)
[2020-04-23] MEDS: DOCUSATE SODIUM 100 MG CAP PO SCH (09:11)
[2020-04-23] MEDS: FUROSEMIDE 20MG/2ML VIAL (J1940) IV SCH (09:12)
[2020-04-23] MEDS ORDERED: DIGOXIN 0.125 MG TAB PO STA (10:40)
[2020-04-23] MEDS ORDERED: DIGO0.123 PO (10:48)
[2020-04-23] MEDS ORDERED: METO1TAB87 PO (10:48)
[2020-04-23] MEDS ORDERED: LASI20TA3 PO (10:48)
[2020-04-23] MEDS ORDERED: ELIQ2.5T PO (10:48)
[2020-04-23 12:00] VITALS: BP 133/84
--- NOTE | 2020-04-24 13:19 | DS.PDOC ---
Discharge Summary General Date of Admission Apr 19, 2020 at 18:05 Date of Discharge 04/23/20 Discharge Summary PROCEDURES PERFORMED DURING STAY: ECHO: Underlying atrial fibrillation with somewhat tachy-scot response with rates up to 130 beats per minute with intermittent pauses of at least 1-2 seconds. Intraventricular conduction disturbance M-mode and two-dimensional echocardiography was performed with pulse, continuous wave, color flow, and tissue Doppler studies. Normal left ventricular size, wall thickness, and wall motion. EF of 65% Mildly dilated right ventricle with right ventricle free wall hypokinesis and Doppler evidence of at least moderate pulmonary hypertension. PASP 48mmhg Prominently dilated right atrium with inferior vena cava (IVC) upper limits of normal with adequate respiratory collapse against an elevated central venous pressure at this time. Prominently dilated left atrium. Normal aortic dimensions. Mild aortic valvular sclerosis without functional valvular abnormality. Moderate degenerative changes of the mitral valvular apparatus with mild insufficiency. Normal appearing tricuspid valve with mild-moderate insufficiency. No apparent intracardiac mass or pericardial effusion. DISCHARGE DIAGNOSES: A fib/ A flutter with RVR CHF exacerbation with preserved EF. SECONDARY DIAGNOSIS: COPD PAROXYSMAL ATRIAL FIBRILLATION s/p HEART ABLATION 08/01/2012 DIASTOLIC CHF Last EF of 55% in 2019 as per [address] grader [address] Virk. HAND ARTHRITIS MITRAL REGURGITATION s/p ROBOTIC MITRAL VALVE REPAIR 08/01/2012 AMIODARONE INDUCED ABNORMAL PFTS CKD stage 3 H/O GIB BRAIN SURGERY (INTRACRANIAL HEMORRHAGE) 06/07/2007 COMPLICATIONS/CHIEF COMPLAINT: Atrial Fibrillation With Rvr, Chf. HOSPITAL COURSE: 79 year-old male with past medical history of COPD, follows with Dr. Rivas, paroxysmal atrial fibrillation not on anticoagulation because of history of GI bleed diastolic congestive heart failure with last known EF of 55% in 2019. 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 fib. He was also noted to have a edema and elevated JVD so was sent to the ED for A. fib with RVR and CHF. Afib/ Aflutter with RVR rate now controlled with metoprolol and digoxin. echo as above high risk for stroke So started on eliquis CHF exacerbation with preserved EF. Echo as above. 2 g sodium diet, daily weights, fluid restriction continue lasix. COPD Continue Symbicort and Xopenex when necessary Hypothyroid Synthroid DISCHARGE MEDICATIONS: Please see below. ALLERGIES: Please see below. PHYSICAL EXAMINATION ON DISCHARGE: VITAL SIGNS: Please see below. General Exam: Positive: Alert, Cooperative, No Acute Distress Eye Exam: Positive: PERRLA, Conjunctiva & lids normal, EOMI; Negative: Sclera icteric Neck Exam: Positive: Supple, JVD negative Negative: thyromegaly Chest Exam: Positive: Diminished at both bases, crackles improved. Heart Exam: Positive: rate varying, Irregular Rhythm, Normal S1, Normal S2, Murmurs; Negative: Gallops, Rubs Telemetry: Positive: Atrial fibrillation, Tachycardia Abdomen Exam: Positive: Normal bowel sounds, Soft; Negative: Tenderness, Hepatospenomegaly Extremity Exam: Positive: Edema (2+ BIPEDAL EDEMA); Negative: Clubbing, Cyanosis Skin Exam: Positive: Nl turgor and temperature, Rash; Negative: Breakdown, Lesion Neuro Exam: Positive: Normal Speech, Strength at 5/5 X4 ext, Normal Tone LABORATORY DATA: Please see below. ACTIVITY: [As tolerated]. DIET: 2 gm sodium diet, 1.8 l fluid restriction DISPOSITION: Home, Self-Care. DISCHARGE INSTRUCTIONS: Follow up with PMD in 1 week Follow up with [employer] in 1 to 2 weeks DISCHARGE CONDITION: [Stable]. TIME SPENT ON DISCHARGE:35 minutes. Vital Signs/I&Os Vital Signs Date Time Temp Pulse Resp B/P (MAP) Pulse Ox O2 Delivery O2 Flow Rate FiO2 04/23/20 12:00 97.4 57 20 133/84 (100) 95 Room Air l I&O- Last 24 Hours up to 6 AM 04/24/20 06:00 Intake Total 300 ml Balance 300 ml Laboratory Data CBC/BMP Item Value Date Time White Blood Count 6.6 10^3/uL 04/23/207 Red Blood Count 4.24 10^6/uL L 04/23/207 Hemoglobin 13.2 g/dl L 04/23/207 Hematocrit 41.6 % L 04/23/207 Mean Corpuscular Volume 98.1 fl H 04/23/20446 Mean Corpuscular Hemoglobin 31.1 pg 04/23/20446 Mean Corpuscular Hemoglobin Concent 31.7 g/dl L 04/23/20446 Red Cell Distribution Width 14.0 % 04/23/20446 Immature Granulocyte % (Auto) 0.3 % 04/23/20446 Platelet Count 184 10^3/uL 04/23/20446 Neutrophils (%) (Auto) 56.5 % 04/23/20446 Lymphocytes (%) (Auto) 28.2 % 04/23/20446 Monocytes (%) (Auto) 12.7 % H 04/23/20446 Sodium Level 142 MEQ/L 04/23/20446 Potassium Level 4.0 MEQ/L 04/23/20446 Chloride Level 109 MEQ/L H 04/23/20446 Carbon Dioxide Level 28 MEQ/L 04/23/20446 Anion Gap 5 MEQ/L L 04/23/20446 Blood Urea Nitrogen 27 MG/DL H 04/23/20446 Creatinine 1.00 MG/DL 04/23/20446 Glomerular Filtration Rate > 60.0 04/23/20446 Fasting Glucose 82 MG/DL 04/23/20446 Calcium Level 8.6 MG/DL L 04/23/20446 Discharge Medications Scheduled Apixaban (Eliquis) 2.5 Mg Tablet, 1 TAB PO BID Budesonide/Formoterol (Symbicort 160-4.5 Mcg Inhaler) 60 Puff/Inhaler Aers, 2 PUFFS INH BID, (Reported) Digoxin (Digoxin) 125 Mcg Tablet, 125 MCG PO DAILY Furosemide (Lasix) 20 Mg Tab, 40 MG PO DAILY Levothyroxine Sodium (Synthroid) 25 Mcg Tablet, 25 MCG PO Q2D, (Reported) Levothyroxine Sodium (Synthroid) 50 Mcg Tablet, 50 MCG PO Q2D, (Reported) Metoprolol Tartrate (Metoprolol Tartrate) 25 Mg Tablet, 25 MG PO BID@0600,1800 Multivitamin (Multi-Vitamin Daily) 1 Tab Tab, 1 TAB PO DAILY, (Reported) Scheduled PRN Acetaminophen (Acetaminophen) 500 Mg Tablet, 500 MG PO Q4H PRN for PAIN, (Reported) Albuterol Sulfate (Ventolin Hfa) 18 Gm Hfa.aer.ad, 2 PUFF INH Q2H PRN for SOB/WHEEZING, (Reported) Ipratropium/Albuterol Sulfate (Iprat-Albut 0.5-3(2.5) mg/3 ml) 3 Ml Ampul.neb, 1 VIAL NEB Q6H PRN for SHORTNESS OF BREATH, (Reported) Allergies Coded Allergies: Penicillins (Verified Allergy, Mild, RASH ON FACE, 04/19/20) JACI VAN MD Apr 24, 2020 13:19
== END 2020-04-23 15:13 | disposition home or self-care (01) | DRG 308 ==
LOC: M ED 15:25 → M ED INP 18:05 → ENRESERV 18:31 → M ICU 20:22 → M PCU 04-22 03:30
PROVIDERS: ADMIT Internal Medicine Nephrology; ATTEND Internal Medicine Nephrology
DX: I48.0 Paroxysmal atrial fibrillation (principal); I50.33 Acute on chronic diastolic (congestive) heart failure; J44.9 Chronic obstructive pulmonary disease, unspecified; I34.0 Nonrheumatic mitral (valve) insufficiency; N18.30 Chronic kidney disease, stage 3 unspecified; Z79.82 Long term (current) use of aspirin; Z79.899 Other long term (current) drug therapy; Z88.0 Allergy status to penicillin

== ENCOUNTER → 2020-05-02 | Outpatient (CLI) | payer MEDICARE ==
[~2020-05-02] MED LIST changes: +APAP500T10 PO; +ASPI81TA26 PO; +DIGO0.123 PO; +ELIQ2.5T PO; +IPRA0.00 NEB; +METO1TAB87 PO; +SYNT25TA PO; +SYNT50TA PO; +VENTAER INH
== END ==
LOC: M LABSMTC 10:50
PROVIDERS: ATTEND Internal Medicine Cardiovascular Disease
DX: Z20.828 Contact with and (suspected) exposure to other viral communicable diseases (principal)
CPT/HCPCS: C9803; U0003

== ENCOUNTER → 2021-05-17 | Outpatient (REF) | payer MEDICARE | LOC: M LAB REF 16:55 | PROVIDERS: ATTEND Nurse Practitioner Family | DX: E83.42 Hypomagnesemia (principal) ==

== ENCOUNTER → 2022-09-25 | Outpatient (REF) | payer MEDICARE, OTHER ==
[~2022-09-25] MED LIST changes: +ALBU8.5H INH; -AMIO200T3 PO; +AMIO200T49 PO; +COLA100C5 PO; +ECOT81TA5 PO; +FLOM0.4C39 PO; +FLUT1BLS INH; +FLUT1BLS3 INH; +LASI40TA9 PO; +PATIENT COMMENT; +QUET1TAB17 PO; +VITMTA PO
[2022-09-25 15:06] LABS: APPEARANCE, URINE HAZY (CLEAR); BACTERIA, URINE AUTO 1+ (NEGATIVE); BILIRUBIN, URINE AUTO NEGATIVE (NEGATIVE); BLOOD, URINE BLOOD 1+ (NEGATIVE); COLOR, URINE AMBER (YELLOW); GLUCOSE, URINE (UA) AUTO NEGATIVE (NEGATIVE); KETONE, URINE AUTO TRACE mg/dL (NEGATIVE); LEUKOCYTE ESTERASE, URINE AUTO TRACE (NEGATIVE); MUCUS, URINE SMALL (NEGATIVE); NITRITE, URINE AUTO POSITIVE (NEGATIVE); PROTEIN, URINE AUTO NEGATIVE (NEGATIVE); RBC, URINE AUTO 1 /HPF (0-3); SQUAMOUS EPITHELIAL CELL UR AU 0 /HPF (0-6); UROBILINOGEN, URINE AUTO 0.2 mg/dL (0.0-2.0); WBC, URINE AUTO 10 /HPF (0-3)
== END ==
LOC: M SHH 14:24
PROVIDERS: ATTEND Physician Assistant
DX: R33.9 Retention of urine, unspecified (principal)

== ENCOUNTER 2022-09-27 14:57 | Inpatient (IN) | payer MEDICARE, OTHER ==
[~2022-09-27] VITALS: Ht 177.8 cm; Wt 59.1 kg
[~2022-09-27 14:57] MED LIST changes: -ALBU8.5H INH; -FLUT1BLS3 INH; -LASI40TA9 PO; -PATIENT COMMENT; -VITMTA PO
[2022-09-27 16:34] LABS: VENOUS BASE EXCESS 4.5 (-2.0-2.0); VENOUS HCO3 30.9 MEQ/L (23.0-27.0); VENOUS O2 SATURATION 32.6 % (60.0-80.0); VENOUS PARTIAL PRESSURE CO2 52.3 mmHg (38.0-50.0); VENOUS PARTIAL PRESSURE O2 21.8 mmHg (30.0-50.0); VENOUS PH 7.389 UNITS (7.330-7.430); VENOUS STANDARD HCO3 26.7 MEQ/L; VENOUS TOTAL CO2 32.5 MEQ/L (24.0-28.0)
[2022-09-27 16:56] LABS: BASO % 0.4 % (0.0-1.0); EOS % 0.2 % (0.0-3.0); HEMATOCRIT 46.9 % (42.0-52.0); HEMOGLOBIN 14.5 g/dl (13.5-17.5); LYMPH # 1.4 10^3/uL (1.5-5.0); LYMPH % 12.7 % (24.0-44.0); MEAN CORPUSCULAR HEMOGLOBIN 30.9 pg (27.0-33.0); MEAN CORPUSCULAR HGB CONC 30.9 g/dl (32.0-36.5); MEAN CORPUSCULAR VOLUME 99.8 fl (80.0-96.0); MONO # 0.6 10^3/uL (0.0-0.8); MONO % 5.9 % (2.0-8.0); NEUTROPHILS # 8.7 10^3/uL (1.5-8.5); NEUTROPHILS % 80.4 % (36.0-66.0); PLATELET COUNT, AUTOMATED 247 10^3/uL (150-450); WHITE BLOOD COUNT 10.8 10^3/uL (4.0-10.0)
[2022-09-27 17:15] LABS: ALBUMIN 3.2 G/DL (3.2-5.2); BILIRUBIN,DIRECT 0.4 MG/DL (<0.4); BILIRUBIN,TOTAL 0.8 MG/DL (0.3-1.2); CALCIUM LEVEL 9.4 MG/DL (8.3-10.6); CREATININE FOR GFR 1.3 MG/DL (0.70-1.30); GLOMERULAR FILTRATION RATE 56.3 (>35); POTASSIUM SERUM 3.9 MMOL/L (3.5-5.1)
[2022-09-27 17:17] LABS: THYROID STIMULATING HORMONE 0.129 uIU/ML (0.55-4.78)
[2022-09-27] MEDS ORDERED: NS 1,000 ML IV SCH (17:30)
[2022-09-27 17:35] LABS: RSV AMPLIFICATION NEGATIVE (NEGATIVE)
[2022-09-27] MEDS ORDERED: DEXTROSE IV ONE (19:00)
[2022-09-27] MEDS ORDERED: ISOVUE-370 76% 100ML VIAL As Ordered ONE (19:03)
[2022-09-27 19:44] LABS: BLOOD UREA NITROGEN 49 MG/DL (9-23); CALCIUM LEVEL 9.1 MG/DL (8.3-10.6); CARBON DIOXIDE LEVEL 29 MMOL/L (20-31); CHLORIDE LEVEL 118 MMOL/L (98-107); CREATININE FOR GFR 1.17 MG/DL (0.70-1.30); GLOMERULAR FILTRATION RATE > 60.0 (>35); GLUCOSE, FASTING 106 MG/DL (74-106); POTASSIUM SERUM 3.5 MMOL/L (3.5-5.1); SODIUM LEVEL 156 MMOL/L (136-145)
[2022-09-27] MEDS: D5W 1,000 ML IV SCH (19:44)
[2022-09-27] MEDS: cefTRIAXone SOD 1 GM in D5W MINI-BAG PLUS 50 ML IV SCH (19:53)
[2022-09-27] MEDS: DOXYCYCLINE HYCLATE 100MG TABLET PO SCH (19:53)
[2022-09-27 21:10] VITALS: BP 146/77
[2022-09-28 01:25] LABS: BLOOD UREA NITROGEN 43 MG/DL (9-23); CALCIUM LEVEL 8.8 MG/DL (8.3-10.6); CARBON DIOXIDE LEVEL 27 MMOL/L (20-31); CHLORIDE LEVEL 116 MMOL/L (98-107); GLOMERULAR FILTRATION RATE > 60.0 (>35); GLUCOSE, FASTING 160 MG/DL (74-106); POTASSIUM SERUM 3.6 MMOL/L (3.5-5.1); SODIUM LEVEL 151 MMOL/L (136-145)
[2022-09-28 01:46] LABS: MAGNESIUM LEVEL 2.3 MG/DL (1.8-2.4)
[2022-09-28] MEDS: D5W 1,000 ML IV SCH ×3 (02:34→16:58)
[2022-09-28] MEDS ORDERED: LASI40TA9 PO (03:36)
[2022-09-28] MEDS ORDERED: VITMTA PO (03:36)
[2022-09-28] MEDS ORDERED: ALBU8.5H INH (03:36)
[2022-09-28] MEDS ORDERED: FLOM0.4C39 PO (03:36)
[2022-09-28] MEDS ORDERED: FLUT1BLS3 INH (03:36)
[2022-09-28] MEDS ORDERED: QUET1TAB17 PO (03:36)
[2022-09-28] MEDS ORDERED: PATIENT COMMENT (03:38)
[2022-09-28] MEDS ORDERED: HOME MED LIST COMPLETE! XX SCH (03:40)
[2022-09-28 05:49] LABS: HEMATOCRIT 41.1 % (42.0-52.0); MEAN CORPUSCULAR HEMOGLOBIN 31.5 pg (27.0-33.0); MEAN CORPUSCULAR HGB CONC 31.6 g/dl (32.0-36.5); MEAN CORPUSCULAR VOLUME 99.5 fl (80.0-96.0); PLATELET COUNT, AUTOMATED 214 10^3/uL (150-450); RED BLOOD COUNT 4.13 10^6/uL (4.30-6.10); WHITE BLOOD COUNT 16.2 10^3/uL (4.0-10.0)
[2022-09-28 06:15] VITALS: BP 114/64
[2022-09-28 06:24] LABS: ALBUMIN 2.6 G/DL (3.2-5.2); ALKALINE PHOSPHATASE 145 U/L (46-116); ALT/SGPT 26 U/L (7.0-40); AST/SGOT 33 U/L (<34); BILIRUBIN,TOTAL 0.8 MG/DL (0.3-1.2); BLOOD UREA NITROGEN 39 MG/DL (9-23); CALCIUM LEVEL 8.7 MG/DL (8.3-10.6); CARBON DIOXIDE LEVEL 30 MMOL/L (20-31); CHLORIDE LEVEL 111 MMOL/L (98-107); GLOMERULAR FILTRATION RATE > 60.0 (>35); GLUCOSE, FASTING 169 MG/DL (74-106); MAGNESIUM LEVEL 2.3 MG/DL (1.8-2.4); POTASSIUM SERUM 3.8 MMOL/L (3.5-5.1); SODIUM LEVEL 149 MMOL/L (136-145); TOTAL PROTEIN 5.9 G/DL (5.7-8.2)
[2022-09-28] MEDS ORDERED: ALBUTEROL 90 MCG/ACT 8GM HFA INHALER INH PRN (07:05)
[2022-09-28] MEDS ORDERED: ACETYLCYSTEINE 20% 4 ML VIAL (200MG/ML) INH SCH (08:00)
[2022-09-28 08:23] LABS: PHOSPHORUS LEVEL 3.2 MG/DL (2.4-5.1)
[2022-09-28] MEDS: HEPARIN SOD (PORCINE) 5000UNITS/ML 1ML VIAL/SYRINGE SC SCH ×2 (08:46→20:04)
[2022-09-28] MEDS: ASPIRIN 81MG ENTERIC TABLET PO SCH (08:47)
[2022-09-28] MEDS: DOXYCYCLINE HYCLATE 100MG TABLET PO SCH ×2 (08:47→20:03)
[2022-09-28] MEDS: MULTIVITAMINS/MINERALS THERAP 1 TAB PO SCH (08:47)
[2022-09-28 11:42] LABS: THYROGLOBULIN ANTIBODY < 15.0 U/ML (<60.0); THYROID STIMULATING HORMONE 0.084 uIU/ML (0.55-4.78); TOTAL T3 94.3 NG/DL (60.0-181.0)
[2022-09-28 13:23] LABS: BLOOD UREA NITROGEN 34 MG/DL (9-23); CALCIUM LEVEL 8.6 MG/DL (8.3-10.6); CARBON DIOXIDE LEVEL 30 MMOL/L (20-31); CHLORIDE LEVEL 106 MMOL/L (98-107); CREATININE FOR GFR 1.04 MG/DL (0.70-1.30); GLOMERULAR FILTRATION RATE > 60.0 (>35); GLUCOSE, FASTING 119 MG/DL (74-106); POTASSIUM SERUM 3.8 MMOL/L (3.5-5.1); SODIUM LEVEL 144 MMOL/L (136-145)
[2022-09-28 13:39] VITALS: O2SAT 96
[2022-09-28 14:00] VITALS: BP 113/63
[2022-09-28 18:46] LABS: BLOOD UREA NITROGEN 31 MG/DL (9-23); CALCIUM LEVEL 7.9 MG/DL (8.3-10.6); CARBON DIOXIDE LEVEL 30 MMOL/L (20-31); CHLORIDE LEVEL 104 MMOL/L (98-107); CREATININE FOR GFR 0.96 MG/DL (0.70-1.30); GLOMERULAR FILTRATION RATE > 60.0 (>35); GLUCOSE, FASTING 156 MG/DL (74-106); POTASSIUM SERUM 3.1 MMOL/L (3.5-5.1); SODIUM LEVEL 140 MMOL/L (136-145)
[2022-09-28] MEDS ORDERED: KCL 10MEQ/100ML SWI (KRUN) 10 MEQ in IV 1 EA IV SCH (19:00)
[2022-09-28] MEDS ORDERED: POTASSIUM CHLORIDE 10MEQ SR TABLET PO ONE ×2 (19:00→21:00)
[2022-09-28 19:28] LABS: MAGNESIUM LEVEL 1.9 MG/DL (1.8-2.4)
[2022-09-28] MEDS: QUEtiapine FUMARATE 25 MG TAB PO SCH (20:03)
[2022-09-28] MEDS: TAMSULOSIN 0.4 MG CAP PO SCH (20:03)
[2022-09-28] MEDS: cefTRIAXone SOD 1 GM in D5W MINI-BAG PLUS 50 ML IV SCH (20:03)
[2022-09-28] MEDS: NS 0.45% 1,000 ML IV SCH ×2 (20:04→22:25)
[2022-09-28] MEDS ORDERED: TAMSULOSIN 0.4 MG CAP PO SCH (21:00)
[2022-09-28 22:00] VITALS: BP 111/62
[2022-09-29 00:54] LABS: BLOOD UREA NITROGEN 30 MG/DL (9-23); CALCIUM LEVEL 7.8 MG/DL (8.3-10.6); CARBON DIOXIDE LEVEL 25 MMOL/L (20-31); CHLORIDE LEVEL 106 MMOL/L (98-107); CREATININE FOR GFR 0.81 MG/DL (0.70-1.30); GLOMERULAR FILTRATION RATE > 60.0 (>35); GLUCOSE, FASTING 92 MG/DL (74-106); POTASSIUM SERUM 3.4 MMOL/L (3.5-5.1); SODIUM LEVEL 139 MMOL/L (136-145)
[2022-09-29] MEDS: KCL 10MEQ/100ML SWI (KRUN) 10 MEQ in IV 1 EA IV SCH ×2 (01:25→02:21)
[2022-09-29] MEDS: NS 0.45% 1,000 ML IV SCH ×2 (04:45→20:18)
[2022-09-29 05:24] VITALS: BP 114/65
[2022-09-29 05:46] LABS: HEMATOCRIT 37.6 % (42.0-52.0); MEAN CORPUSCULAR HEMOGLOBIN 30.8 pg (27.0-33.0); MEAN CORPUSCULAR HGB CONC 31.9 g/dl (32.0-36.5); MEAN CORPUSCULAR VOLUME 96.4 fl (80.0-96.0); PLATELET COUNT, AUTOMATED 183 10^3/uL (150-450); WHITE BLOOD COUNT 12.2 10^3/uL (4.0-10.0)
[2022-09-29 06:21] LABS: ALBUMIN 2.2 G/DL (3.2-5.2); ALKALINE PHOSPHATASE 141 U/L (46-116); ALT/SGPT 32 U/L (7.0-40); AST/SGOT 38 U/L (<34); BILIRUBIN,TOTAL 0.6 MG/DL (0.3-1.2); BLOOD UREA NITROGEN 27 MG/DL (9-23); CARBON DIOXIDE LEVEL 24 MMOL/L (20-31); CHLORIDE LEVEL 107 MMOL/L (98-107); CREATININE FOR GFR 0.82 MG/DL (0.70-1.30); GLOMERULAR FILTRATION RATE > 60.0 (>35); GLUCOSE, FASTING 84 MG/DL (74-106); MAGNESIUM LEVEL 1.8 MG/DL (1.8-2.4); POTASSIUM SERUM 3.8 MMOL/L (3.5-5.1); SODIUM LEVEL 140 MMOL/L (136-145); TOTAL PROTEIN 5.3 G/DL (5.7-8.2)
[2022-09-29] MEDS: DOXYCYCLINE HYCLATE 100MG TABLET PO SCH ×2 (09:14→20:17)
[2022-09-29] MEDS: ASPIRIN 81MG ENTERIC TABLET PO SCH (09:14)
[2022-09-29] MEDS: HEPARIN SOD (PORCINE) 5000UNITS/ML 1ML VIAL/SYRINGE SC SCH ×2 (09:14→20:18)
[2022-09-29] MEDS: MULTIVITAMINS/MINERALS THERAP 1 TAB PO SCH (09:14)
[2022-09-29 11:35] VITALS: O2SAT 95
[2022-09-29 14:00] VITALS: BP 125/66
[2022-09-29 20:00] VITALS: BP 124/66
[2022-09-29] MEDS: cefTRIAXone SOD 1 GM in D5W MINI-BAG PLUS 50 ML IV SCH (20:17)
[2022-09-29] MEDS: TAMSULOSIN 0.4 MG CAP PO SCH (20:17)
[2022-09-29] MEDS: QUEtiapine FUMARATE 25 MG TAB PO SCH (20:17)
[2022-09-30 02:30] VITALS: O2SAT 95
[2022-09-30 06:00] VITALS: BP 103/63
[2022-09-30 06:04] LABS: HEMATOCRIT 36.4 % (42.0-52.0); HEMOGLOBIN 11.7 g/dl (13.5-17.5); MEAN CORPUSCULAR HEMOGLOBIN 31.2 pg (27.0-33.0); MEAN CORPUSCULAR HGB CONC 32.1 g/dl (32.0-36.5); MEAN CORPUSCULAR VOLUME 97.1 fl (80.0-96.0); PLATELET COUNT, AUTOMATED 210 10^3/uL (150-450); RED BLOOD COUNT 3.75 10^6/uL (4.30-6.10); WHITE BLOOD COUNT 9.8 10^3/uL (4.0-10.0)
[2022-09-30 06:52] LABS: ALBUMIN 1.9 G/DL (3.2-5.2); ALKALINE PHOSPHATASE 145 U/L (46-116); ALT/SGPT 26 U/L (7.0-40); AST/SGOT 30 U/L (<34); BILIRUBIN,TOTAL 0.6 MG/DL (0.3-1.2); BLOOD UREA NITROGEN 22 MG/DL (9-23); CALCIUM LEVEL 7.8 MG/DL (8.3-10.6); CARBON DIOXIDE LEVEL 24 MMOL/L (20-31); CHLORIDE LEVEL 107 MMOL/L (98-107); GLOMERULAR FILTRATION RATE > 60.0 (>35); GLUCOSE, FASTING 90 MG/DL (74-106); POTASSIUM SERUM 3.9 MMOL/L (3.5-5.1); SODIUM LEVEL 138 MMOL/L (136-145); TOTAL PROTEIN 4.9 G/DL (5.7-8.2)
[2022-09-30] MEDS: NS 0.45% 1,000 ML IV SCH ×3 (06:55→21:17)
[2022-09-30] MEDS: DOXYCYCLINE HYCLATE 100MG TABLET PO SCH ×2 (08:49→21:05)
[2022-09-30] MEDS: MULTIVITAMINS/MINERALS THERAP 1 TAB PO SCH (08:49)
[2022-09-30] MEDS: ASPIRIN 81MG ENTERIC TABLET PO SCH (08:49)
[2022-09-30] MEDS: HEPARIN SOD (PORCINE) 5000UNITS/ML 1ML VIAL/SYRINGE SC SCH (08:49)
[2022-09-30] MEDS ORDERED: LACTOBACILLUS ACIDOPHILUS CAP (BACID) PO SCH (09:00)
[2022-09-30] MEDS ORDERED: MIRALAX *UNIT DOSE* 17GM PACKET PO PRN (09:35)
[2022-09-30] MEDS ORDERED: MIRALAX *UNIT DOSE* 17GM PACKET PO ONE (10:15)
[2022-09-30 10:22] VITALS: O2SAT 95
[2022-09-30 14:00] VITALS: BP 104/62
[2022-09-30] MEDS: MIRTAZAPINE 7.5MG PER 1/2 TABLET PO SCH (21:05)
[2022-09-30] MEDS: CEFDINIR 300 MG CAP (OMNICEF) PO SCH (21:05)
[2022-09-30] MEDS: TAMSULOSIN 0.4 MG CAP PO SCH (21:05)
[2022-09-30] MEDS: QUEtiapine FUMARATE 25 MG TAB PO SCH (21:05)
[2022-09-30] MEDS: ENOXAPARIN 40MG/0.4ML SYRINGE (J1650 PER 10MG) SC SCH (21:06)
[2022-10-01 06:02] VITALS: BP 131/72
[2022-10-01] MEDS: NS 0.45% 1,000 ML IV SCH ×3 (06:15→20:22)
[2022-10-01 07:21] LABS: HEMATOCRIT 37.7 % (42.0-52.0); HEMOGLOBIN 12.3 g/dl (13.5-17.5); MEAN CORPUSCULAR HEMOGLOBIN 31.3 pg (27.0-33.0); MEAN CORPUSCULAR HGB CONC 32.6 g/dl (32.0-36.5); MEAN CORPUSCULAR VOLUME 95.9 fl (80.0-96.0); PLATELET COUNT, AUTOMATED 241 10^3/uL (150-450); RED BLOOD COUNT 3.93 10^6/uL (4.30-6.10); WHITE BLOOD COUNT 6.4 10^3/uL (4.0-10.0)
[2022-10-01 07:46] LABS: ALBUMIN 1.8 G/DL (3.2-5.2); ALKALINE PHOSPHATASE 148 U/L (46-116); ALT/SGPT 29 U/L (7.0-40); AST/SGOT 31 U/L (<34); BILIRUBIN,TOTAL 0.5 MG/DL (0.3-1.2); BLOOD UREA NITROGEN 18 MG/DL (9-23); CALCIUM LEVEL 7.6 MG/DL (8.3-10.6); CARBON DIOXIDE LEVEL 24 MMOL/L (20-31); CHLORIDE LEVEL 113 MMOL/L (98-107); CREATININE FOR GFR 0.71 MG/DL (0.70-1.30); GLOMERULAR FILTRATION RATE > 60.0 (>35); GLUCOSE, FASTING 91 MG/DL (74-106); POTASSIUM SERUM 3.9 MMOL/L (3.5-5.1); SODIUM LEVEL 141 MMOL/L (136-145); TOTAL PROTEIN 4.7 G/DL (5.7-8.2)
[2022-10-01] MEDS: DOXYCYCLINE HYCLATE 100MG TABLET PO SCH ×2 (08:35→20:21)
[2022-10-01] MEDS: MULTIVITAMINS/MINERALS THERAP 1 TAB PO SCH (08:35)
[2022-10-01] MEDS: ASPIRIN 81MG ENTERIC TABLET PO SCH (08:35)
[2022-10-01] MEDS: CEFDINIR 300 MG CAP (OMNICEF) PO SCH ×2 (08:35→20:20)
[2022-10-01] MEDS: LACTOBACILLUS ACIDOPHILUS CAP (BACID) PO SCH ×2 (08:36→20:21)
[2022-10-01 09:48] VITALS: O2SAT 95
[2022-10-01] MEDS: ENOXAPARIN 40MG/0.4ML SYRINGE (J1650 PER 10MG) SC SCH (20:20)
[2022-10-01] MEDS: QUEtiapine FUMARATE 25 MG TAB PO SCH (20:20)
[2022-10-01] MEDS: MIRTAZAPINE 7.5MG PER 1/2 TABLET PO SCH (20:20)
[2022-10-01] MEDS: TAMSULOSIN 0.4 MG CAP PO SCH (20:21)
[2022-10-02 05:27] VITALS: BP 132/72
[2022-10-02] MEDS: LACTOBACILLUS ACIDOPHILUS CAP (BACID) PO SCH ×2 (08:12→20:50)
[2022-10-02] MEDS: ASPIRIN 81MG ENTERIC TABLET PO SCH (08:12)
[2022-10-02] MEDS: MULTIVITAMINS/MINERALS THERAP 1 TAB PO SCH (08:12)
[2022-10-02] MEDS: DOXYCYCLINE HYCLATE 100MG TABLET PO SCH ×2 (08:12→20:50)
[2022-10-02] MEDS: CEFDINIR 300 MG CAP (OMNICEF) PO SCH ×2 (08:12→20:50)
[2022-10-02] MEDS: NS 0.45% 1,000 ML IV SCH ×3 (08:13→21:28)
[2022-10-02] MEDS ORDERED: LIDOCAINE 1% MDV 20ML VIAL As Ordered ONE (12:24)
[2022-10-02 14:31] LABS: BLOOD UREA NITROGEN 11 MG/DL (9-23); CALCIUM LEVEL 8.2 MG/DL (8.3-10.6); CARBON DIOXIDE LEVEL 25 MMOL/L (20-31); CHLORIDE LEVEL 110 MMOL/L (98-107); GLOMERULAR FILTRATION RATE > 60.0 (>35); GLUCOSE, FASTING 109 MG/DL (74-106); SODIUM LEVEL 140 MMOL/L (136-145)
[2022-10-02 14:33] LABS: FREE T4 1.16 NG/DL (0.89-1.76)
[2022-10-02 14:35] LABS: THYROID STIMULATING HORMONE 0.289 uIU/ML (0.55-4.78)
[2022-10-02] MEDS: QUEtiapine FUMARATE 25 MG TAB PO SCH (20:50)
[2022-10-02] MEDS: TAMSULOSIN 0.4 MG CAP PO SCH (20:50)
[2022-10-02] MEDS: MIRTAZAPINE 7.5MG PER 1/2 TABLET PO SCH (20:50)
[2022-10-02] MEDS: ENOXAPARIN 40MG/0.4ML SYRINGE (J1650 PER 10MG) SC SCH (20:56)
[2022-10-02] MEDS: ACETAMINOPHEN TAB 650MG DOSE (2X325MG) PO PRN (23:36)
[2022-10-03 05:13] VITALS: BP 131/71
[2022-10-03] MEDS: NS 0.45% 1,000 ML IV SCH ×3 (05:13→20:32)
[2022-10-03 07:12] LABS: HEMATOCRIT 35.1 % (42.0-52.0); HEMOGLOBIN 11.6 g/dl (13.5-17.5); MEAN CORPUSCULAR HEMOGLOBIN 31.9 pg (27.0-33.0); MEAN CORPUSCULAR VOLUME 96.4 fl (80.0-96.0); PLATELET COUNT, AUTOMATED 262 10^3/uL (150-450); RED BLOOD COUNT 3.64 10^6/uL (4.30-6.10); WHITE BLOOD COUNT 7.4 10^3/uL (4.0-10.0)
[2022-10-03] MEDS: DOXYCYCLINE HYCLATE 100MG TABLET PO SCH ×2 (09:00→20:19)
[2022-10-03] MEDS: ASPIRIN 81MG ENTERIC TABLET PO SCH (09:00)
[2022-10-03] MEDS: CEFDINIR 300 MG CAP (OMNICEF) PO SCH ×2 (09:00→20:19)
[2022-10-03] MEDS: MULTIVITAMINS/MINERALS THERAP 1 TAB PO SCH (09:00)
[2022-10-03] MEDS: LACTOBACILLUS ACIDOPHILUS CAP (BACID) PO SCH ×2 (09:00→20:19)
[2022-10-03 14:00] VITALS: BP 130/69
[2022-10-03] MEDS: TAMSULOSIN 0.4 MG CAP PO SCH (20:19)
[2022-10-03] MEDS: MIRTAZAPINE 7.5MG PER 1/2 TABLET PO SCH (20:19)
[2022-10-03] MEDS: QUEtiapine FUMARATE 25 MG TAB PO SCH (20:19)
[2022-10-03] MEDS: ENOXAPARIN 40MG/0.4ML SYRINGE (J1650 PER 10MG) SC SCH ×2 (20:19→20:32)
[2022-10-04 05:35] VITALS: BP 113/59
[2022-10-04 06:00] VITALS: BP 113/59
[2022-10-04] MEDS: LEVOTHYROXINE 25MCG TABLET (0.025MG) PO SCH (06:17)
[2022-10-04] MEDS: CEFDINIR 300 MG CAP (OMNICEF) PO SCH ×2 (09:03→21:00)
[2022-10-04] MEDS: LACTOBACILLUS ACIDOPHILUS CAP (BACID) PO SCH ×2 (09:03→21:00)
[2022-10-04] MEDS: MULTIVITAMINS/MINERALS THERAP 1 TAB PO SCH (09:03)
[2022-10-04] MEDS: ASPIRIN 81MG ENTERIC TABLET PO SCH (09:03)
[2022-10-04] MEDS: DOXYCYCLINE HYCLATE 100MG TABLET PO SCH (09:03)
[2022-10-04] MEDS: NS 0.45% 1,000 ML IV SCH (09:37)
[2022-10-04] MEDS: ACETAMINOPHEN TAB 650MG DOSE (2X325MG) PO PRN (18:17)
[2022-10-04] MEDS: TAMSULOSIN 0.4 MG CAP PO SCH (21:00)
[2022-10-04] MEDS: QUEtiapine FUMARATE 25 MG TAB PO SCH (21:00)
[2022-10-04] MEDS: MIRTAZAPINE 7.5MG PER 1/2 TABLET PO SCH (21:00)
[2022-10-04] MEDS: ENOXAPARIN 40MG/0.4ML SYRINGE (J1650 PER 10MG) SC SCH (21:00)
[2022-10-05] MEDS: NS 0.45% 1,000 ML IV SCH (02:57)
[2022-10-05 06:00] VITALS: BP 125/63
[2022-10-05] MEDS: LEVOTHYROXINE 25MCG TABLET (0.025MG) PO SCH (06:03)
[2022-10-05] MEDS: LACTOBACILLUS ACIDOPHILUS CAP (BACID) PO SCH ×2 (08:48→21:23)
[2022-10-05] MEDS: ASPIRIN 81MG ENTERIC TABLET PO SCH (08:48)
[2022-10-05] MEDS: CEFDINIR 300 MG CAP (OMNICEF) PO SCH ×2 (08:48→21:22)
[2022-10-05] MEDS: MULTIVITAMINS/MINERALS THERAP 1 TAB PO SCH (08:48)
[2022-10-05] MEDS: ENOXAPARIN 40MG/0.4ML SYRINGE (J1650 PER 10MG) SC SCH (21:22)
[2022-10-05] MEDS: QUEtiapine FUMARATE 25 MG TAB PO SCH (21:23)
[2022-10-05] MEDS: MIRTAZAPINE 7.5MG PER 1/2 TABLET PO SCH (21:23)
[2022-10-05] MEDS: TAMSULOSIN 0.4 MG CAP PO SCH (21:23)
[2022-10-06 06:04] VITALS: BP 140/81
[2022-10-06 06:04] LABS: HEMATOCRIT 36.6 % (42.0-52.0); MEAN CORPUSCULAR HEMOGLOBIN 31.3 pg (27.0-33.0); MEAN CORPUSCULAR HGB CONC 32.8 g/dl (32.0-36.5); MEAN CORPUSCULAR VOLUME 95.6 fl (80.0-96.0); PLATELET COUNT, AUTOMATED 296 10^3/uL (150-450); RED BLOOD COUNT 3.83 10^6/uL (4.30-6.10); WHITE BLOOD COUNT 7.2 10^3/uL (4.0-10.0)
[2022-10-06] MEDS: LEVOTHYROXINE 25MCG TABLET (0.025MG) PO SCH (06:21)
[2022-10-06] MEDS: LACTOBACILLUS ACIDOPHILUS CAP (BACID) PO SCH ×2 (08:25→21:11)
[2022-10-06] MEDS: CEFDINIR 300 MG CAP (OMNICEF) PO SCH ×2 (08:25→21:11)
[2022-10-06] MEDS: MULTIVITAMINS/MINERALS THERAP 1 TAB PO SCH (08:25)
[2022-10-06] MEDS: ASPIRIN 81MG ENTERIC TABLET PO SCH (08:25)
[2022-10-06] MEDS ORDERED: FLUTICASONE PROP 0.05% NASAL SPRAY 16 GM (FLONASE) NARES PRN (20:30)
[2022-10-06 20:34] VITALS: BP 137/85
[2022-10-06] MEDS: guaiFENesin ER 600 MG TAB PO SCH (21:11)
[2022-10-06] MEDS: ENOXAPARIN 40MG/0.4ML SYRINGE (J1650 PER 10MG) SC SCH (21:11)
[2022-10-06] MEDS: TAMSULOSIN 0.4 MG CAP PO SCH (21:11)
[2022-10-06] MEDS: MIRTAZAPINE 7.5MG PER 1/2 TABLET PO SCH (21:11)
[2022-10-06] MEDS: QUEtiapine FUMARATE 25 MG TAB PO SCH (21:11)
[2022-10-06] MEDS ORDERED: IPRATROPIUM 0.5MG/ALBUTEROL 2.5MG INH SOL UD 3ML (DUONEB) NEB ONE (21:40)
[2022-10-07] MEDS: LEVOTHYROXINE 25MCG TABLET (0.025MG) PO SCH (05:36)
[2022-10-07 06:00] VITALS: BP_SYST 135; BP_SYST 137; BP_DIAS 83; BP_DIAS 85
[2022-10-07 06:29] LABS: BASO # 0.1 10^3/uL (0.0-0.2); BASO % 0.8 % (0.0-1.0); EOS # 0.1 10^3/uL (0.0-0.5); EOS % 0.7 % (0.0-3.0); HEMATOCRIT 39.1 % (42.0-52.0); HEMOGLOBIN 12.5 g/dl (13.5-17.5); LYMPH # 1.9 10^3/uL (1.5-5.0); LYMPH % 26.8 % (24.0-44.0); MEAN CORPUSCULAR HEMOGLOBIN 30.8 pg (27.0-33.0); MEAN CORPUSCULAR VOLUME 96.3 fl (80.0-96.0); MONO # 0.7 10^3/uL (0.0-0.8); MONO % 9.1 % (2.0-8.0); NEUTROPHILS # 4.5 10^3/uL (1.5-8.5); NEUTROPHILS % 62.3 % (36.0-66.0); PLATELET COUNT, AUTOMATED 307 10^3/uL (150-450); RED BLOOD COUNT 4.06 10^6/uL (4.30-6.10); WHITE BLOOD COUNT 7.1 10^3/uL (4.0-10.0)
[2022-10-07 06:54] LABS: BLOOD UREA NITROGEN 16 MG/DL (9-23); CALCIUM LEVEL 8.5 MG/DL (8.3-10.6); CARBON DIOXIDE LEVEL 30 MMOL/L (20-31); CHLORIDE LEVEL 106 MMOL/L (98-107); CREATININE FOR GFR 0.89 MG/DL (0.70-1.30); GLOMERULAR FILTRATION RATE > 60.0 (>35); GLUCOSE, FASTING 87 MG/DL (74-106); POTASSIUM SERUM 4.8 MMOL/L (3.5-5.1); SODIUM LEVEL 139 MMOL/L (136-145)
[2022-10-07] MEDS: ASPIRIN 81MG ENTERIC TABLET PO SCH (08:50)
[2022-10-07] MEDS: guaiFENesin ER 600 MG TAB PO SCH ×3 (08:51→20:25)
[2022-10-07] MEDS: CEFDINIR 300 MG CAP (OMNICEF) PO SCH ×2 (08:51→20:03)
[2022-10-07] MEDS: MULTIVITAMINS/MINERALS THERAP 1 TAB PO SCH (08:51)
[2022-10-07] MEDS: LACTOBACILLUS ACIDOPHILUS CAP (BACID) PO SCH ×3 (08:51→20:25)
[2022-10-07] MEDS: TAMSULOSIN 0.4 MG CAP PO SCH ×2 (20:03→20:25)
[2022-10-07] MEDS: QUEtiapine FUMARATE 25 MG TAB PO SCH (20:04)
[2022-10-07] MEDS: MIRTAZAPINE 7.5MG PER 1/2 TABLET PO SCH (20:04)
[2022-10-07] MEDS: ENOXAPARIN 40MG/0.4ML SYRINGE (J1650 PER 10MG) SC SCH ×2 (20:04→20:25)
[2022-10-08] MEDS: LEVOTHYROXINE 25MCG TABLET (0.025MG) PO SCH (05:40)
[2022-10-08 06:00] VITALS: BP 122/63
[2022-10-08] MEDS: METOPROLOL TART 12.5 MG PER 1/2 TAB PO SCH ×3 (09:00→10:50)
[2022-10-08] MEDS: ASPIRIN 81MG ENTERIC TABLET PO SCH ×3 (09:00→10:50)
[2022-10-08] MEDS: LACTOBACILLUS ACIDOPHILUS CAP (BACID) PO SCH ×4 (09:00→21:03)
[2022-10-08] MEDS: guaiFENesin ER 600 MG TAB PO SCH ×4 (09:00→21:03)
[2022-10-08] MEDS: MULTIVITAMINS/MINERALS THERAP 1 TAB PO SCH ×3 (09:00→10:50)
[2022-10-08] MEDS: CEFDINIR 300 MG CAP (OMNICEF) PO SCH ×3 (09:08→20:58)
[2022-10-08] MEDS: TAMSULOSIN 0.4 MG CAP PO SCH (20:58)
[2022-10-08] MEDS: MIRTAZAPINE 7.5MG PER 1/2 TABLET PO SCH (20:58)
[2022-10-08] MEDS: QUEtiapine FUMARATE 25 MG TAB PO SCH (20:58)
[2022-10-08] MEDS: ENOXAPARIN 40MG/0.4ML SYRINGE (J1650 PER 10MG) SC SCH (20:59)
[2022-10-08] MEDS: ACETAMINOPHEN TAB 650MG DOSE (2X325MG) PO PRN (21:00)
[2022-10-09 04:49] VITALS: BP 127/77
[2022-10-09] MEDS: LEVOTHYROXINE 25MCG TABLET (0.025MG) PO SCH (05:44)
[2022-10-09 05:48] LABS: HEMATOCRIT 38.9 % (42.0-52.0); HEMOGLOBIN 12.5 g/dl (13.5-17.5); MEAN CORPUSCULAR HEMOGLOBIN 31.2 pg (27.0-33.0); MEAN CORPUSCULAR HGB CONC 32.1 g/dl (32.0-36.5); PLATELET COUNT, AUTOMATED 308 10^3/uL (150-450); RED BLOOD COUNT 4.01 10^6/uL (4.30-6.10); WHITE BLOOD COUNT 5.7 10^3/uL (4.0-10.0)
[2022-10-09] MEDS: guaiFENesin ER 600 MG TAB PO SCH (08:03)
[2022-10-09] MEDS: CEFDINIR 300 MG CAP (OMNICEF) PO SCH ×2 (08:04→20:25)
[2022-10-09] MEDS: ASPIRIN 81MG ENTERIC TABLET PO SCH (08:04)
[2022-10-09] MEDS: MULTIVITAMINS/MINERALS THERAP 1 TAB PO SCH (08:04)
[2022-10-09] MEDS: LACTOBACILLUS ACIDOPHILUS CAP (BACID) PO SCH ×2 (08:04→20:25)
[2022-10-09] MEDS: METOPROLOL TART 12.5 MG PER 1/2 TAB PO SCH (08:05)
[2022-10-09] MEDS ORDERED: MUCI600T31 PO (16:52)
[2022-10-09] MEDS ORDERED: FLOM0.4C39 PO (16:52)
[2022-10-09] MEDS ORDERED: CEFD300CAP PO (16:52)
[2022-10-09] MEDS ORDERED: MIRT-10 PO (16:52)
[2022-10-09] MEDS ORDERED: MIRA1POW3 PO (16:52)
[2022-10-09] MEDS ORDERED: LASI40TA9 PO (16:52)
[2022-10-09] MEDS ORDERED: METO1TAB87 PO (16:52)
[2022-10-09] MEDS: QUEtiapine FUMARATE 25 MG TAB PO SCH (20:25)
[2022-10-09] MEDS: MIRTAZAPINE 7.5MG PER 1/2 TABLET PO SCH (20:25)
[2022-10-09] MEDS: TAMSULOSIN 0.4 MG CAP PO SCH (20:25)
[2022-10-09] MEDS: ENOXAPARIN 40MG/0.4ML SYRINGE (J1650 PER 10MG) SC SCH (20:25)
[2022-10-10 05:25] VITALS: BP 112/67
[2022-10-10] MEDS: LEVOTHYROXINE 25MCG TABLET (0.025MG) PO SCH (06:06)
[2022-10-10] MEDS: ASPIRIN 81MG ENTERIC TABLET PO SCH (08:43)
[2022-10-10] MEDS: MULTIVITAMINS/MINERALS THERAP 1 TAB PO SCH (08:43)
[2022-10-10] MEDS: CEFDINIR 300 MG CAP (OMNICEF) PO SCH (08:43)
[2022-10-10] MEDS: LACTOBACILLUS ACIDOPHILUS CAP (BACID) PO SCH (08:43)
[2022-10-10 08:44] VITALS: BP 102/67
[2022-10-10] MEDS: METOPROLOL TART 12.5 MG PER 1/2 TAB PO SCH (08:44)
[2022-10-10] MEDS ORDERED: CEFP100T PO (10:37)
== END 2022-10-10 10:59 | disposition home or self-care (01) | DRG 698 ==
LOC: M ED 14:57 → M ED INP 17:45 → ENRESERV 19:56 → M MSPAV 21:12
PROVIDERS: ADMIT Internal Medicine; ATTEND Internal Medicine
PROC: B246ZZZ Ultrasonography of Right and Left Heart (ICD-10-PCS; principal; 2022-09-29)
PROC: 0G9H3ZX Drainage of Right Thyroid Gland Lobe, Percutaneous Approach, Diagnostic (ICD-10-PCS; 2022-10-02)
DX: T83.511A Infection and inflammatory reaction due to indwelling urethral catheter, initial encounter (principal); J18.9 Pneumonia, unspecified organism; G93.41 Metabolic encephalopathy; E43 Unspecified severe protein-calorie malnutrition; I50.42 Chronic combined systolic (congestive) and diastolic (congestive) heart failure; E87.0 Hyperosmolality and hypernatremia; J44.0 Chronic obstructive pulmonary disease with (acute) lower respiratory infection; R64 Cachexia; E87.1 Hypo-osmolality and hyponatremia; I48.0 Paroxysmal atrial fibrillation; I25.10 Atherosclerotic heart disease of native coronary artery without angina pectoris; Y84.6 Urinary catheterization as the cause of abnormal reaction of the patient, or of later complication, without mention of misadventure at the time of the procedure; N40.1 Benign prostatic hyperplasia with lower urinary tract symptoms; R33.9 Retention of urine, unspecified; N18.30 Chronic kidney disease, stage 3 unspecified; R91.1 Solitary pulmonary nodule; B96.1 Klebsiella pneumoniae [K. pneumoniae] as the cause of diseases classified elsewhere; N28.1 Cyst of kidney, acquired; F39 Unspecified mood [affective] disorder; E86.0 Dehydration; E05.00 Thyrotoxicosis with diffuse goiter without thyrotoxic crisis or storm; T38.1X1A Poisoning by thyroid hormones and substitutes, accidental (unintentional), initial encounter; G30.9 Alzheimer's disease, unspecified; F02.80 Dementia in other diseases classified elsewhere, unspecified severity, without behavioral disturbance, psychotic disturbance, mood disturbance, and anxiety; K59.00 Constipation, unspecified; E03.9 Hypothyroidism, unspecified; I27.20 Pulmonary hypertension, unspecified; Z79.82 Long term (current) use of aspirin; Z79.890 Hormone replacement therapy; Z79.899 Other long term (current) drug therapy

== ENCOUNTER 2022-10-22 17:46 | Inpatient (IN) | payer OTHER ==
[~2022-10-22] VITALS: Ht 180.3 cm; Wt 54.4 kg
[~2022-10-22 17:46] MED LIST changes: +ALBU8.5H INH; +CEFD300CAP PO; +CEFP100T PO; +DOCUSATE SODIUM 100MG CAPSULE PO SCH; +FLUT1BLS3 INH; +LASI40TA9 PO; +MIRA1POW3 PO; +MIRT-10 PO; +MUCI600T31 PO; +PATIENT COMMENT; +VITMTA PO
[2022-10-22] MEDS ORDERED: LIDOCAINE 2% 5ML JELLY UROJET TOP ONE (18:20)
[2022-10-22] MEDS ORDERED: NS 500 ML IV ONE (18:20)
[2022-10-22 18:55] LABS: BASO # 0.1 10^3/uL (0.0-0.2); BASO % 0.6 % (0.0-1.0); EOS # 0.1 10^3/uL (0.0-0.5); EOS % 0.9 % (0.0-3.0); HEMATOCRIT 39.9 % (42.0-52.0); HEMOGLOBIN 12.8 g/dl (13.5-17.5); LYMPH # 1.2 10^3/uL (1.5-5.0); LYMPH % 14.5 % (24.0-44.0); MEAN CORPUSCULAR HEMOGLOBIN 31.5 pg (27.0-33.0); MEAN CORPUSCULAR HGB CONC 32.1 g/dl (32.0-36.5); MEAN CORPUSCULAR VOLUME 98.3 fl (80.0-96.0); MONO # 0.8 10^3/uL (0.0-0.8); MONO % 10.3 % (2.0-8.0); NEUTROPHILS # 5.9 10^3/uL (1.5-8.5); NEUTROPHILS % 73.3 % (36.0-66.0); PLATELET COUNT, AUTOMATED 174 10^3/uL (150-450); RED BLOOD COUNT 4.06 10^6/uL (4.30-6.10); WHITE BLOOD COUNT 8.1 10^3/uL (4.0-10.0)
[2022-10-22] MEDS ORDERED: PIPERACILLIN/TAZOBACTAM SOD 4.5 GM in D5W MINI-BAG PLUS 50 ML IV ONE (19:05)
[2022-10-22 19:20] LABS: ALBUMIN 3.2 G/DL (3.2-5.2); BILIRUBIN,DIRECT 0.3 MG/DL (<0.4); BILIRUBIN,TOTAL 0.9 MG/DL (0.3-1.2); CALCIUM LEVEL 9.1 MG/DL (8.3-10.6); CREATININE FOR GFR 1.95 MG/DL (0.70-1.30); GLOMERULAR FILTRATION RATE 35.2 (>35); POTASSIUM SERUM 4.6 MMOL/L (3.5-5.1); TOTAL PROTEIN 6.8 G/DL (5.7-8.2)
[2022-10-22 19:31] LABS: RSV AMPLIFICATION NEGATIVE (NEGATIVE)
[2022-10-22 19:33] LABS: THYROID STIMULATING HORMONE 2.762 uIU/ML (0.55-4.78)
[2022-10-22] MEDS ORDERED: LEVO25TA5 PO (20:55)
[2022-10-22] MEDS: DOCUSATE SODIUM 100MG CAPSULE PO SCH (21:00)
[2022-10-22] MEDS ORDERED: HOME MED LIST COMPLETE! XX SCH (21:00)
[2022-10-22] MEDS ORDERED: MOM 30ML SUSPENSION UDC PO PRN (21:15)
[2022-10-22] MEDS ORDERED: NS 1,000 ML IV SCH (21:15)
[2022-10-22 22:20] VITALS: BP 135/63
[2022-10-22] MEDS: cefTRIAXone SOD 1 GM in D5W MINI-BAG PLUS 50 ML IV SCH (23:24)
[2022-10-23] VITALS: BP 117/56
[2022-10-23 04:00] VITALS: BP 121/66
[2022-10-23 05:29] LABS: HEMATOCRIT 35.5 % (42.0-52.0); HEMOGLOBIN 11.4 g/dl (13.5-17.5); MEAN CORPUSCULAR HEMOGLOBIN 31.8 pg (27.0-33.0); MEAN CORPUSCULAR HGB CONC 32.1 g/dl (32.0-36.5); MEAN CORPUSCULAR VOLUME 99.2 fl (80.0-96.0); PLATELET COUNT, AUTOMATED 154 10^3/uL (150-450); RED BLOOD COUNT 3.58 10^6/uL (4.30-6.10); WHITE BLOOD COUNT 7.4 10^3/uL (4.0-10.0)
[2022-10-23] MEDS: HEPARIN SOD (PORCINE) 5000UNITS/ML 1ML VIAL/SYRINGE SC SCH ×3 (05:36→22:00)
[2022-10-23] MEDS: LEVOTHYROXINE 25MCG TABLET (0.025MG) PO SCH (05:38)
[2022-10-23 06:03] LABS: ALBUMIN 2.6 G/DL (3.2-5.2); BILIRUBIN,TOTAL 0.8 MG/DL (0.3-1.2); CALCIUM LEVEL 8.2 MG/DL (8.3-10.6); CREATININE FOR GFR 1.84 MG/DL (0.70-1.30); GLOMERULAR FILTRATION RATE 37.7 (>35); POTASSIUM SERUM 3.7 MMOL/L (3.5-5.1); TOTAL PROTEIN 5.4 G/DL (5.7-8.2)
[2022-10-23 07:47] VITALS: BP 102/50
[2022-10-23] MEDS: DOCUSATE SODIUM 100MG CAPSULE PO SCH ×3 (09:00→20:28)
[2022-10-23] MEDS: ASPIRIN 81MG ENTERIC TABLET PO SCH ×2 (09:00→17:01)
[2022-10-23] MEDS: METOPROLOL TART 12.5 MG PER 1/2 TAB PO SCH ×2 (09:00→17:01)
[2022-10-23 12:00] VITALS: BP 110/59
[2022-10-23 16:00] VITALS: BP 110/56
[2022-10-23 19:46] VITALS: BP 126/74
[2022-10-23] MEDS ORDERED: OLANZapine INTRAMUSCULAR 10MG VIAL IM PRN (20:00)
[2022-10-23] MEDS: TAMSULOSIN 0.4 MG CAP PO SCH (20:27)
[2022-10-23] MEDS: RAMELTEON 8 MG TAB (ROZEREM) PO PRN (20:27)
[2022-10-23] MEDS: ACETAMINOPHEN TAB 650MG DOSE (2X325MG) PO PRN (20:27)
[2022-10-23] MEDS: cefTRIAXone SOD 1 GM in D5W MINI-BAG PLUS 50 ML IV SCH (23:37)
[2022-10-24 00:58] VITALS: BP 108/65
[2022-10-24 04:46] VITALS: BP 101/57
[2022-10-24] MEDS: LEVOTHYROXINE 50MCG TABLET (0.05MG) PO SCH ×2 (06:00→06:14)
[2022-10-24] MEDS: HEPARIN SOD (PORCINE) 5000UNITS/ML 1ML VIAL/SYRINGE SC SCH ×4 (06:00→22:53)
[2022-10-24 08:00] VITALS: BP 98/56
[2022-10-24] MEDS: METOPROLOL TART 12.5 MG PER 1/2 TAB PO SCH (09:00)
[2022-10-24] MEDS: DOCUSATE SODIUM 100MG CAPSULE PO SCH ×2 (09:22→20:33)
[2022-10-24] MEDS: ASPIRIN 81MG ENTERIC TABLET PO SCH (09:22)
[2022-10-24] MEDS: D5W/0.45% SODIUM CHLORIDE 1,000 ML IV SCH ×2 (09:23→20:33)
[2022-10-24] MEDS: ADVAIR HFA 230/21MCG INHALER INH SCH ×2 (11:48→19:55)
[2022-10-24 12:00] VITALS: BP 106/58
[2022-10-24 16:00] VITALS: BP 128/62
[2022-10-24 19:37] VITALS: BP 105/56
[2022-10-24] MEDS: TAMSULOSIN 0.4 MG CAP PO SCH (20:33)
[2022-10-24] MEDS: RAMELTEON 8 MG TAB (ROZEREM) PO PRN (20:41)
[2022-10-24] MEDS ORDERED: QUEtiapine FUMARATE 25 MG TAB PO SCH (21:00)
[2022-10-24] MEDS: cefTRIAXone SOD 1 GM in D5W MINI-BAG PLUS 50 ML IV SCH (23:58)
[2022-10-25 00:04] VITALS: BP 102/59
[2022-10-25 03:26] VITALS: BP 130/63
[2022-10-25] MEDS: HEPARIN SOD (PORCINE) 5000UNITS/ML 1ML VIAL/SYRINGE SC SCH (05:54)
[2022-10-25] MEDS: LEVOTHYROXINE 25MCG TABLET (0.025MG) PO SCH (05:54)
[2022-10-25 07:19] VITALS: BP 114/58
[2022-10-25] MEDS: ADVAIR HFA 230/21MCG INHALER INH SCH ×2 (07:20→19:48)
[2022-10-25 08:16] LABS: BASO % 0.7 % (0.0-1.0); EOS # 0.2 10^3/uL (0.0-0.5); EOS % 2.8 % (0.0-3.0); HEMOGLOBIN 11.2 g/dl (13.5-17.5); LYMPH # 1.2 10^3/uL (1.5-5.0); LYMPH % 21.7 % (24.0-44.0); MEAN CORPUSCULAR HEMOGLOBIN 31.7 pg (27.0-33.0); MEAN CORPUSCULAR VOLUME 99.2 fl (80.0-96.0); MONO # 0.5 10^3/uL (0.0-0.8); MONO % 8.6 % (2.0-8.0); NEUTROPHILS # 3.5 10^3/uL (1.5-8.5); PLATELET COUNT, AUTOMATED 149 10^3/uL (150-450); RED BLOOD COUNT 3.53 10^6/uL (4.30-6.10); WHITE BLOOD COUNT 5.4 10^3/uL (4.0-10.0)
[2022-10-25 08:47] LABS: BLOOD UREA NITROGEN 23 MG/DL (9-23); CALCIUM LEVEL 7.8 MG/DL (8.3-10.6); CARBON DIOXIDE LEVEL 26 MMOL/L (20-31); CHLORIDE LEVEL 107 MMOL/L (98-107); CREATININE FOR GFR 0.91 MG/DL (0.70-1.30); GLOMERULAR FILTRATION RATE > 60.0 (>35); GLUCOSE, FASTING 91 MG/DL (74-106); POTASSIUM SERUM 3.7 MMOL/L (3.5-5.1); SODIUM LEVEL 140 MMOL/L (136-145)
[2022-10-25 09:22] VITALS: BP 114/58
[2022-10-25] MEDS: DOCUSATE SODIUM 100MG CAPSULE PO SCH (09:22)
[2022-10-25] MEDS: METOPROLOL TART 12.5 MG PER 1/2 TAB PO SCH (09:22)
[2022-10-25] MEDS: ASPIRIN 81MG ENTERIC TABLET PO SCH (09:22)
[2022-10-25] MEDS ORDERED: QUEtiapine FUMARATE 25 MG TAB PO SCH (09:35)
[2022-10-25] MEDS: OLANZapine 5 MG TAB PO SCH ×2 (10:11→20:11)
[2022-10-25 11:45] VITALS: BP 101/56
[2022-10-25] MEDS ORDERED: SCOPOLAMINE 1MG TRANSDERMAL PATCH TOP PRN (13:15)
[2022-10-25] MEDS ORDERED: ONDANSETRON 4MG ORAL DISINTEGRATING TAB PO PRN (13:15)
[2022-10-25] MEDS: MORPHINE 10MG/0.5ML ORAL CONCENTRATE SOLUTION U/D SL PRN (17:47)
[2022-10-25] MEDS: LORazepam 1 MG TAB PO PRN ×2 (17:48→21:31)
[2022-10-25] MEDS: TAMSULOSIN 0.4 MG CAP PO SCH (20:11)
[2022-10-25] MEDS: RAMELTEON 8 MG TAB (ROZEREM) PO PRN (20:11)
[2022-10-25] MEDS: CEFDINIR 300 MG CAP (OMNICEF) PO SCH (20:11)
[2022-10-25] MEDS: ACETAMINOPHEN TAB 650MG DOSE (2X325MG) PO PRN (21:30)
[2022-10-25] MEDS ORDERED: OLANZapine INTRAMUSCULAR 10MG VIAL IM ONE (23:10)
[2022-10-26] MEDS: ADVAIR HFA 230/21MCG INHALER INH SCH ×2 (08:00→20:00)
[2022-10-26] MEDS: CEFDINIR 300 MG CAP (OMNICEF) PO SCH ×2 (09:00→20:42)
[2022-10-26] MEDS: OLANZapine 5 MG TAB PO SCH ×2 (09:00→20:42)
[2022-10-26] MEDS: TAMSULOSIN 0.4 MG CAP PO SCH (20:42)
[2022-10-27] MEDS: ADVAIR HFA 230/21MCG INHALER INH SCH ×2 (08:00→20:03)
[2022-10-27] MEDS: OLANZapine 5 MG TAB PO SCH ×2 (09:59→19:58)
[2022-10-27] MEDS: CEFDINIR 300 MG CAP (OMNICEF) PO SCH ×2 (09:59→19:58)
[2022-10-27] MEDS: LORazepam 1 MG TAB PO PRN ×3 (12:58→19:58)
[2022-10-27] MEDS: TAMSULOSIN 0.4 MG CAP PO SCH (19:59)
[2022-10-28] MEDS: OLANZapine 5 MG TAB PO SCH ×2 (09:11→20:07)
[2022-10-28] MEDS: CEFDINIR 300 MG CAP (OMNICEF) PO SCH ×2 (09:11→20:07)
[2022-10-28] MEDS: ADVAIR HFA 230/21MCG INHALER INH SCH ×2 (11:49→20:26)
[2022-10-28] MEDS: LORazepam 1 MG TAB PO PRN ×2 (18:14→20:07)
[2022-10-28] MEDS: TAMSULOSIN 0.4 MG CAP PO SCH (20:07)
[2022-10-29] MEDS: LORazepam 1 MG TAB PO PRN ×3 (02:21→21:57)
[2022-10-29] MEDS: ADVAIR HFA 230/21MCG INHALER INH SCH ×2 (11:40→19:49)
[2022-10-29] MEDS: CEFDINIR 300 MG CAP (OMNICEF) PO SCH (11:58)
[2022-10-29] MEDS: OLANZapine 5 MG TAB PO SCH ×2 (11:58→19:14)
[2022-10-29] MEDS: ACETAMINOPHEN TAB 650MG DOSE (2X325MG) PO PRN (15:59)
[2022-10-29] MEDS: TAMSULOSIN 0.4 MG CAP PO SCH (19:14)
[2022-10-29] MEDS: RAMELTEON 8 MG TAB (ROZEREM) PO PRN (23:04)
[2022-10-29] MEDS: LORazepam 2 MG TAB PO PRN ×2 (23:36→23:47)
[2022-10-29] MEDS ORDERED: OLANZapine INTRAMUSCULAR 10MG VIAL IM ONE (23:50)
[2022-10-30] MEDS: ADVAIR HFA 230/21MCG INHALER INH SCH ×2 (08:00→20:00)
[2022-10-30] MEDS: OLANZapine 5 MG TAB PO SCH ×2 (09:34→20:30)
[2022-10-30] MEDS: LORazepam 2 MG TAB PO PRN ×2 (10:21→18:50)
[2022-10-30] MEDS: MORPHINE 10MG/0.5ML ORAL CONCENTRATE SOLUTION U/D SL PRN ×2 (10:21→18:50)
[2022-10-30] MEDS: TAMSULOSIN 0.4 MG CAP PO SCH (20:30)
[2022-10-31] MEDS: ADVAIR HFA 230/21MCG INHALER INH SCH ×2 (07:03→19:39)
[2022-10-31] MEDS: OLANZapine 5 MG TAB PO SCH ×2 (08:13→22:22)
[2022-10-31] MEDS: LORazepam 2 MG TAB PO PRN ×5 (11:33→22:22)
[2022-10-31] MEDS: MORPHINE 10MG/0.5ML ORAL CONCENTRATE SOLUTION U/D SL PRN ×5 (11:33→22:21)
[2022-10-31] MEDS: RAMELTEON 8 MG TAB (ROZEREM) PO PRN (22:22)
[2022-10-31] MEDS: TAMSULOSIN 0.4 MG CAP PO SCH (22:22)
[2022-11-01] MEDS: MORPHINE 10MG/0.5ML ORAL CONCENTRATE SOLUTION U/D SL PRN ×5 (05:44→21:49)
[2022-11-01] MEDS: ADVAIR HFA 230/21MCG INHALER INH SCH ×2 (07:25→19:12)
[2022-11-01] MEDS: OLANZapine 5 MG TAB PO SCH ×2 (10:19→20:22)
[2022-11-01] MEDS: LORazepam 2 MG TAB PO PRN ×4 (10:19→21:49)
[2022-11-01] MEDS: TAMSULOSIN 0.4 MG CAP PO SCH (20:22)
[2022-11-02] MEDS: MORPHINE 10MG/0.5ML ORAL CONCENTRATE SOLUTION U/D SL PRN ×5 (01:37→22:23)
[2022-11-02] MEDS: LORazepam 2 MG TAB PO PRN ×5 (01:37→22:22)
[2022-11-02] MEDS: ADVAIR HFA 230/21MCG INHALER INH SCH ×3 (08:00→20:36)
[2022-11-02] MEDS: OLANZapine 5 MG TAB PO SCH ×2 (09:00→21:00)
[2022-11-02] MEDS: ATROPINE SULFATE 1% OPHTH SOLN 2ML BTL SL PRN (11:49)
[2022-11-02] MEDS: TAMSULOSIN 0.4 MG CAP PO SCH (21:00)
[2022-11-03] MEDS: MORPHINE 10MG/0.5ML ORAL CONCENTRATE SOLUTION U/D SL PRN ×3 (06:29→17:15)
[2022-11-03] MEDS: LORazepam 2 MG TAB PO PRN (06:29)
[2022-11-03] MEDS: OLANZapine 5 MG TAB PO SCH ×2 (09:00→21:00)
[2022-11-03] MEDS: ADVAIR HFA 230/21MCG INHALER INH SCH ×2 (13:00→19:52)
[2022-11-03] MEDS: ATROPINE SULFATE 1% OPHTH SOLN 2ML BTL SL PRN (17:15)
[2022-11-03] MEDS: TAMSULOSIN 0.4 MG CAP PO SCH (21:00)
[2022-11-04] MEDS: MORPHINE 10MG/0.5ML ORAL CONCENTRATE SOLUTION U/D SL PRN ×4 (00:45→22:25)
[2022-11-04] MEDS: ADVAIR HFA 230/21MCG INHALER INH SCH ×2 (07:50→19:36)
[2022-11-04] MEDS: OLANZapine 5 MG TAB PO SCH ×2 (08:55→20:41)
[2022-11-04] MEDS: TAMSULOSIN 0.4 MG CAP PO SCH (20:40)
[2022-11-05] MEDS: ADVAIR HFA 230/21MCG INHALER INH SCH ×2 (08:00→20:00)
[2022-11-05] MEDS: OLANZapine 5 MG TAB PO SCH ×2 (09:00→21:00)
[2022-11-05] MEDS: MORPHINE 10MG/0.5ML ORAL CONCENTRATE SOLUTION U/D SL PRN ×2 (09:06→22:09)
[2022-11-05] MEDS: TAMSULOSIN 0.4 MG CAP PO SCH (21:00)
[2022-11-06] MEDS: OLANZapine 5 MG TAB PO SCH ×2 (08:00→21:00)
[2022-11-06] MEDS: ADVAIR HFA 230/21MCG INHALER INH SCH ×2 (08:00→20:00)
[2022-11-06] MEDS: MORPHINE 10MG/0.5ML ORAL CONCENTRATE SOLUTION U/D SL PRN (16:49)
[2022-11-06] MEDS: LORazepam 2 MG TAB PO PRN (17:42)
[2022-11-06] MEDS: TAMSULOSIN 0.4 MG CAP PO SCH (21:00)
[2022-11-07] MEDS: ADVAIR HFA 230/21MCG INHALER INH SCH ×2 (07:26→20:00)
[2022-11-07] MEDS: OLANZapine 5 MG TAB PO SCH ×2 (08:27→21:00)
[2022-11-07] MEDS: MORPHINE 10MG/0.5ML ORAL CONCENTRATE SOLUTION U/D SL PRN ×2 (17:22→22:20)
[2022-11-07] MEDS: TAMSULOSIN 0.4 MG CAP PO SCH (21:00)
[2022-11-07] MEDS: LORazepam 2 MG TAB PO PRN (22:20)
[2022-11-08] MEDS: LORazepam 2 MG TAB PO PRN ×4 (01:27→15:19)
[2022-11-08] MEDS: MORPHINE 10MG/0.5ML ORAL CONCENTRATE SOLUTION U/D SL PRN ×4 (01:27→15:19)
[2022-11-08] MEDS: ADVAIR HFA 230/21MCG INHALER INH SCH ×2 (07:21→20:46)
[2022-11-08] MEDS: OLANZapine 5 MG TAB PO SCH ×2 (07:43→21:00)
[2022-11-08] MEDS: TAMSULOSIN 0.4 MG CAP PO SCH (21:00)
[2022-11-09] MEDS: ADVAIR HFA 230/21MCG INHALER INH SCH (08:00)
[2022-11-09] MEDS: OLANZapine 5 MG TAB PO SCH (08:27)
[2022-11-09] MEDS: MORPHINE 10MG/0.5ML ORAL CONCENTRATE SOLUTION U/D SL PRN ×3 (10:18→16:16)
[2022-11-09] MEDS: LORazepam 2 MG TAB PO PRN ×2 (14:13→16:17)
== END 2022-11-09 19:25 | disposition expired | DRG 698 ==
LOC: M ED 17:46 → M ED INP 21:14 → M PCU 22:01 → M MS5PR 10-27 16:31
PROVIDERS: ADMIT Family Medicine; ATTEND Student in an Organized Health Care Education/Training Program
DX: T83.091A Other mechanical complication of indwelling urethral catheter, initial encounter (principal); E43 Unspecified severe protein-calorie malnutrition; N17.9 Acute kidney failure, unspecified; G93.40 Encephalopathy, unspecified; N39.0 Urinary tract infection, site not specified; I50.22 Chronic systolic (congestive) heart failure; E87.0 Hyperosmolality and hypernatremia; Z68.1 Body mass index [BMI] 19.9 or less, adult; F02.811 Dementia in other diseases classified elsewhere, unspecified severity, with agitation; E87.1 Hypo-osmolality and hyponatremia; I48.0 Paroxysmal atrial fibrillation; Z66 Do not resuscitate; Z95.2 Presence of prosthetic heart valve; N18.9 Chronic kidney disease, unspecified; J44.9 Chronic obstructive pulmonary disease, unspecified; Z87.891 Personal history of nicotine dependence; N40.1 Benign prostatic hyperplasia with lower urinary tract symptoms; E03.9 Hypothyroidism, unspecified; Z79.82 Long term (current) use of aspirin; Z79.890 Hormone replacement therapy; Z79.899 Other long term (current) drug therapy; Z20.822 Contact with and (suspected) exposure to COVID-19; N28.1 Cyst of kidney, acquired; K80.20 Calculus of gallbladder without cholecystitis without obstruction; I71.40 Abdominal aortic aneurysm, without rupture, unspecified; J45.909 Unspecified asthma, uncomplicated; R33.9 Retention of urine, unspecified; R57.1 Hypovolemic shock; I27.20 Pulmonary hypertension, unspecified; I07.1 Rheumatic tricuspid insufficiency; E86.0 Dehydration